=== PATIENT | female | born 1940 | race Caucasian/White ===

== ENCOUNTER 2017-03-31 12:08 | Observation (INO) | payer MEDICARE, BC ==
[~2017-03-31] VITALS: Ht 154.9 cm; Wt 40.1 kg
[2017-03-31 12:10] VITALS: BP 142/81
--- OUTSIDE RECORDS SUMMARY | 2017-03-31 12:36 | External Medical Summary Rpt ---
Author Author [employer] Organization [employer] Address Unknown Phone Unavailable Purpose Continuity of Care Document - through 2016
--- OUTSIDE RECORDS SUMMARY | 2017-03-31 12:36 | External Medical Summary Rpt ---
Author Author [facility] [place] Organization [facility] Address Unknown Phone Unavailable Care Team Providers Care [employer] Name Role Phone DR RAYMOND PCP [phone] Encounter [facility] [id number] Date(s): 08/10/16 - 08/10/16 [facility] [address] [place] [address]- Discharge Diagnosis: Nausea Discharge Diagnosis: Acute lower UTI Discharge Diagnosis: Acute hyponatremia Discharge Disposition: OP Self Care or Home Attending Physician: RADHA STYLES MD-EMR Admitting Physician: RADHA STYLES MD-EMR Referring Physician: RAYMOND, SELF REFERRED Reason for Visit DEHYDRATED, PATIENT IS ALCOHOLIC, MAY HAVE HAD SEIZURE Vital Signs Most recent 1 2 3 to oldest [Reference Range]: Temperature Oral (08/10/16 Tympanic Source 7:26 PM) (08/10/16 1:56 PM) Temperature Fahrenheit Fahrenheit Mode (08/10/16 7:26 (08/10/16 1:56 PM) PM) Temperature, 97.9 Deg F 97.6 Deg F Fahrenheit (08/10/16 7:26 (08/10/16 1:56 [96.8-99.7 PM) PM) Deg F] Clinical 36.6 Deg C 36.4 Deg C Temperature, (08/10/16 7:26 (08/10/16 1:56 C PM) PM) Peripheral 81 bpm (08/10/16 97 bpm (08/10/16 Pulse Rate 7:26 PM) 1:56 PM) [60-100 bpm] Heart Rate 83 bpm (08/10/16 89 bpm (08/10/16 88 bpm (08/10/16 Monitored 5:15 PM) 5:00 PM) 4:45 PM) [60-100 bpm] Respiratory 16 Breaths/Min 23 Breaths/Min 51 Breaths/Min Rate [14-20 (08/10/16 7:26 *HI*(08/10/16 *HI*(08/10/16 Breaths/Min] PM) 5:15 PM) 5:00 PM) Blood 189/83 mmHg 164/82 mmHg 164/82 mmHg Pressure *HI*(08/10/16 *HI*(08/10/16 *HI*(08/10/16 [90-140/60-9 7:26 PM) 4:45 PM) 4:30 PM) 0 mmHg] Mean 114 (08/10/16 114 (08/10/16 Arterial 4:45 PM) 4:30 PM) Pressure (MAP)-BMDI Oxygen 94 % (08/10/16 98 % (08/10/16 Saturation 7: PM) 1:56 PM) [94-100 %] Oxygen Room air Therapy Mode (08/10/16 7:26 PM) Problem List Condition Effective Status Health Informant Dates Status Chronic back Active patient pain(Confirm ed) Compression Active fracture(Con firmed) S/P Active kyphoplasty( Confirmed) History of Active patient COPD(Confirm ed) Hx of breast Active cancer(Confi rmed) Smoker(Confi Active patient rmed) Allergies, Adverse Reactions, Alerts Substance Reaction Severity Status tetanus toxoid Active Medications acetaminophen-HYDROcodone (Lortab 10/325 oral tablet) Oral, Every 6 Hours, Refills: 0 nitrofurantoin (Macrobid 100 mg oral capsule)1 Cap, Oral, Two Times A Day, 7 Day(s), Refills: 0Ordering provider: AMADA SOTO MD-EMR ondansetron (Zofran ODT 4 mg oral tablet, disintegrating)1 Tab, Oral, Three Times A Day, As Needed, Nausea/Vomiting, Refills: 0Ordering provider: AMADA SOTO MD-EMR Results GENERAL CHEMISTRY Most recent 1 to oldest [Reference Range]: Sodium Level 131 mmol/L [136-145 *LOW* mmol/L] (08/10/16 4:42 PM) Potassium 4.2 mmol/L Level (08/10/16 4:42 PM) [3.5-5.1 mmol/L] Chloride 92 mmol/L Level *LOW* [98-107 (08/10/16 4:42 PM) mmol/L] Carbon 26 mmol/L Dioxide (08/10/16 4:42 PM) Level [21-32 mmol/L] Anion Gap 17 [9-20] (08/10/16 4:42 PM) Glucose 122 mg/dL Level *HI* [74-106 (08/10/16 4:42 PM) mg/dL] Blood Urea 11 mg/dL Nitrogen (08/10/16 4:42 PM) [7-18 mg/dL] Creatinine 0.82 mg/dL Level (08/10/16 4:42 PM) [0.55-1.02 mg/dL] eGFR 82 mL/min/1.73m2 [>=60 (08/10/16 4:42 PM) mL/min/1.73m 2] eGFR 68 mL/min/1.73m2 NonAfrican (08/10/16 4:42 PM) [>=60 mL/min/1.73m 2] Bun/Creatini 13.4 ne (08/10/16 4:42 PM) [8.0-20.0] Calcium 9.8 mg/dL Level (08/10/16 4:42 PM) [8.5-10.1 mg/dL] Protein 7.9 Gram/dL Total (08/10/16 4:42 PM) [6.4-8.5 Gram/dL] Albumin 4.7 Gram/dL Level (08/10/16 4:42 PM) [3.4-5.0 Gram/dL] Globulin 3.2 Gram/dL [1.5-4.5 (08/10/16 4:42 PM) Gram/dL] A/G Ratio 1.5 [1.1-2.5] (08/10/16 4:42 PM) Bilirubin 0.5 mg/dL Total (08/10/16 4:42 PM) [0.2-1.0 mg/dL] Alk Phos 135 Units/Liter [46-116 *HI* Units/Liter] (08/10/16 4:42 PM) AST [15-37 22 Units/Liter Units/Liter] (08/10/16 4:42 PM) ALT [12-78 19 Units/Liter Units/Liter] (08/10/16 4:42 PM) CARDIAC SPECIFIC MARKERS Most recent 1 to oldest [Reference Range]: Troponin I <0.017 ng/mL Ultra (12/26/16 4:42 PM) [0.000-0.056 ng/mL] HEMATOLOGY Most recent 1 to oldest [Reference Range]: WBC [4.2-9.1 10.6 K/uL K/uL] *HI* (08/10/16 4:42 PM) RBC 4.39 Million/uL [3.93-5.22 (08/10/16 4:42 PM) Million/uL] Hgb 14.9 Gram/dL [11.2-15.7 (08/10/16 4:42 PM) Gram/dL] Hct 41.0 % [34.1-44.9 (08/10/16 4:42 PM) %] MCV 93.4 fL [79.0-94.8 (08/10/16 4:42 PM) fL] MCH 33.9 pg [25.6-32.2 *HI* pg] (08/10/16 4:42 PM) MCHC 36.3 Gram/dL [32.2-36.5 (08/10/16 4:42 PM) Gram/dL] Platelet 320 K/uL Count (08/10/16 4:42 PM) [163-369 K/uL] MPV 9.0 fL [9.4-12.4 *LOW* fL] (08/10/16 4:42 PM) RDW 13.4 % [11.6-14.4 (08/10/16 4:42 PM) %] Neut % 81.7 % [34.0-71.0 *HI* %] (08/10/16 4:42 PM) Neut # 8.66 K/uL [1.56-6.13 *HI* K/uL] (08/10/16 4:42 PM) Lymph % 13.7 % [19.0-53.0 *LOW* %] (08/10/16 4:42 PM) Lymph # 1.45 K/uL [1.18-3.74 (08/10/16 4:42 PM) K/uL] Mchenry % 4.3 % [4.7-12.5 %] *LOW* (08/10/16 4:42 PM) Mchenry # 0.46 K/uL [0.24-0.82 (08/10/16 4:42 PM) K/uL] Eos % 0.1 % [1.0-7.0 %] *LOW* (08/10/16 4:42 PM) Eos # 0.01 K/uL [0.04-0.54 *LOW* K/uL] (08/10/16 4:42 PM) Baso % 0.2 % [0.0-1.0 %] (08/10/16 4:42 PM) Baso # 0.02 K/uL [0.01-0.08 (08/10/16 4:42 PM) K/uL] Slide Review No (08/10/16 4:42 PM) URINALYSIS Most recent 1 to oldest [Reference Range]: Urine Type U CleanCatch (08/10/16 4:57 PM) Urine Color Yellow *NA* (08/10/16 4:57 PM) Urine Cloudy Appearance *ABN* (08/10/16 4:57 PM) Urine 1.005 Specific (08/10/16 4:57 PM) Premium [1.005-1.030 ] Urine pH 7.0 Dipstick (08/10/16 4:57 PM) [6.0-8.0] Urine Large Leukocyte *ABN* Esterase (08/10/16 4:57 PM) [Negative] Urine Negative Nitrite (08/10/16 4:57 PM) [Negative] Urine Negative Protein (08/10/16 4:57 PM) Dipstick [Negative] Urine Negative Glucose (08/10/16 4:57 PM) Dipstick [Negative] Urine Trace Ketones *ABN* Dipstick (08/10/16 4:57 PM) [Negative] Urine 0.2 EU/dL Urobilinogen (08/10/16 4:57 PM) Dipstick Urine Negative Bilirubin (08/10/16 4:57 PM) Dipstick [Negative] Urine Blood Trace Dipstick *ABN* [Negative] (08/10/16 4:57 PM) Ur RBC [None 5-10 /HPF Seen /HPF] *ABN* (08/10/16 4:57 PM) Ur WBC [None 20-50 /HPF Seen /HPF] *ABN* (08/10/16 4:57 PM) Ur Bacteria Trace [None Seen] *ABN* (08/10/16 4:57 PM) Ur Amorph Trace *ABN* (08/10/16 4:57 PM) Ur 2-5 /HPF Epithelial *ABN* Cells [None (08/10/16 4:57 PM) Seen /HPF] TOXICOLOGY Most recent 1 to oldest [Reference Range]: Alcohol <3 mg/dL *NA* (08/10/16 4:42 PM) Immunizations No data available for this section Procedures No data available for this section Social History Social History Response Type Smoking Status Current every day smoker; Packs/Tins Daily 3 Assessment and Plan No data available for this section Hospital Discharge Instructions Patient EducationNausea, Adult Urinary Tract Infection
--- OUTSIDE RECORDS SUMMARY | 2017-03-31 12:36 | External Medical Summary Rpt ---
Author Author DEAN Address Unknown Phone [email or web address] Purpose Continuity of Care Document - through 2016
--- OUTSIDE RECORDS SUMMARY | 2017-03-31 12:36 | External Medical Summary Rpt ---
Author Author [facility] Organization [facility] Address Unknown Phone Unavailable Care Team Providers Care Outside Salesperson Name Role Phone RAYMOND, SHERRI DAVID DR PCP Unavailable Encounter [facility] [id number] Date(s): 04/26/16 - 05/01/16 [facility] [address] [place] [address]- [phone] Discharge Diagnosis: Hyponatremia Discharge Diagnosis: Lumbar compression fracture Discharge Disposition: Inpatient Rehabilatation Facility Attending Physician: LISY ARREDONDO MD Admitting Physician: LISY ARREDONDO MD Referring Physician: SELF, REFERRED (REF) Reason for Visit COLLAPSED VERTEBRA, NEC, SITE UNSP, INIT Vital Signs Most recent 1 2 3 to oldest [Reference Range]: Temperature Oral Oral (04/30/16 Oral (04/30/16 Source (05/01/16 7:00 AM) 10:00 PM) 10:30 AM) Temperature Fahrenheit Fahrenheit Fahrenheit Mode (05/01/16 7:00 AM) (04/30/16 10:00 (04/30/16 10:30 PM) AM) Temperature, 98.6 Deg F 97.6 Deg F 98.3 Deg F Fahrenheit (05/01/16 7:00 AM) (04/30/16 10:00 (04/30/16 1:39 PM) [96.8-99.7 PM) Deg F] Clinical 37 Deg C 36.4 Deg C 36.8 Deg C Temperature, (05/01/16 7:00 AM) (04/30/16 10:00 (04/30/16 1:39 PM) C PM) Pulse Method Pulse Oximetry Pulse Oximetry (04/29/16 11:36 (04/26/16 6:24 PM) AM) Pulse Rhythm Regular (04/29/16 11:36 AM) Heart Rate, 88 bpm 69 bpm 83 bpm Apical (04/27/16 4:30 PM) (04/27/16 8:54 AM) (04/26/16 9:13 PM) [60-100 bpm] Peripheral 74 bpm (04/26/16 Pulse Rate 11:38 AM) [60-100 bpm] Heart Rate 58 bpm 62 bpm (04/30/16 56 bpm Monitored *LOW* 10:00 PM) *LOW* [60-100 bpm] (05/01/16 7:00 AM) (04/30/16 1:39 PM) Respiratory 16 Breaths/Min 16 Breaths/Min 15 Breaths/Min Rate [14-20 (04/30/16 1:39 PM) (04/30/16 5:00 AM) (04/29/16 9:00 PM) Breaths/Min] Blood Arm, right upper Arm, right upper Pressure (04/29/16 11:36 (04/26/16 11:38 Location AM) AM) Blood Non-Invasive BP Non-Invasive BP Pressure Device (04/29/16 Device (04/26/16 Source 11:36 AM) 11:38 AM) Blood Sitting (04/29/16 Pressure 11:36 AM) Position Blood 138/62 mmHg 149/78 mmHg 177/86 mmHg Pressure (05/01/16 7:00 AM) *HI*(04/30/16 *HI* [90-140/60-9 10:00 PM) (04/30/16 1:39 PM) 0 mmHg] Mean 80 92 (04/30/16 10:00 108 Arterial (05/01/16 7:00 AM) PM) (04/30/16 1:39 PM) Pressure (MAP)-BMDI Oxygen 95 % 99 % 100 % Saturation (05/01/16 8:00 AM) (04/30/16 8:00 AM) (04/30/16 5:00 AM) [94-100 %] Oxygen Room air Room air Simple mask Therapy Mode (05/01/16 8:00 AM) (04/30/16 8:00 AM) (04/29/16 2:19 PM) Oxygen Flow 6 Liter/Min Rate (04/29/16 2:19 PM) Problem List Condition Effective Status Health Informant Dates Status Chronic back Active patient pain(Confirm ed) Compression Active fracture(Con firmed) S/P Active kyphoplasty( Confirmed) History of Active patient COPD(Confirm ed) Hx of breast Active cancer(Confi rmed) Smoker(Confi Active patient rmed) Allergies, Adverse Reactions, Alerts Substance Reaction Severity Status tetanus toxoid Active Medications acetaminophen-HYDROcodone (Grovespring 5 mg-325 mg oral tablet)1 Tab, Oral, Every 6 Hours, 7 Day(s), As Needed, Breakthrough Pain, Refills: 0Ordering provider: ROCKY AYALA MD albuterol-ipratropium (DuoNeb 0.5 mg-2.5 mg/3 mL inhalation solution)3 mL, Nebulized Inhalation , Every 2 Hours, As Needed, Dyspnea, Refills: 0 carvedilol (Coreg 12.5 mg oral tablet) 1 Tab, Oral, Two Times A Day, Refills: 0 docusate (docusate sodium 100 mg oral capsule) 1 Cap, Oral, Every Day losartan (losartan 25 mg oral tablet) 1 Tab, Oral, Every Day Results GENERAL CHEMISTRY Most recent 1 2 3 to oldest [Reference Range]: Sodium Level 131 mmol/L 134 mmol/L 134 mmol/L [136-146 *LOW*(05/01/16 *LOW*(04/30/16 *LOW*(04/30/16 mmol/L] 2:29 AM) 2:41 AM) 2:41 AM) Potassium 3.9 mmol/L 4.3 mmol/L 4.3 mmol/L Level (05/01/16 2:29 AM) (04/30/16 2:41 AM) (04/30/16 2:41 AM) [3.5-5.1 mmol/L] Chloride 98 mmol/L 101 mmol/L 101 mmol/L Level *LOW*(05/01/16 *LOW*(04/30/16 *LOW*(04/30/16 [102-112 2:29 AM) 2:41 AM) 2:41 AM) mmol/L] Carbon 26 mmol/L 24 mmol/L 24 mmol/L Dioxide (05/01/16 2:29 AM) (04/30/16 2:41 AM) (04/30/16 2:41 AM) Level [21-32 mmol/L] Anion Gap 11 (05/01/16 2:29 13 (04/30/16 2:41 13 (04/30/16 2:41 [9-20] AM) AM) AM) Glucose 99 mg/dL (05/01/16 105 mg/dL 105 mg/dL Level 2:29 AM) (04/30/16 2:41 AM) (04/30/16 2:41 AM) [74-106 mg/dL] Blood Urea 7 mg/dL (05/01/16 13 mg/dL (04/30/16 13 mg/dL (04/30/16 Nitrogen 2:29 AM) 2:41 AM) 2:41 AM) [7-22 mg/dL] Creatinine 0.40 mg/dL 0.50 mg/dL 0.50 mg/dL Level *LOW*(05/01/16 *LOW*(04/30/16 *LOW*(04/30/16 [0.55-1.02 2:29 AM) 2:41 AM) 2:41 AM) mg/dL] eGFR 188 mL/min/1.73m2 145 mL/min/1.73m2 145 mL/min/1.73m2 [>=60 (05/01/16 2:29 (04/30/16 2:41 (04/30/16 2:41 mL/min/1.73m AM) AM) AM) 2] eGFR 155 mL/min/1.73m2 120 mL/min/1.73m2 120 mL/min/1.73m2 NonAfrican (05/01/16 2:29 (04/30/16 2:41 (04/30/16 2:41 [>=60 AM) AM) AM) mL/min/1.73m 2] Bun/Creatini 17.5 (05/01/16 26.0 *HI*(04/30/16 26.0 *HI*(04/30/16 ne 2:29 AM) 2:41 AM) 2:41 AM) [8.0-20.0] (04/30/16 2:41 AM) (04/30/16 2:41 AM) Calcium 8.1 mg/dL 8.2 mg/dL 8.2 mg/dL Level *LOW*(05/01/16 *LOW*(04/30/16 *LOW*(04/30/16 [8.5-10.1 2:29 AM) 2:41 AM) 2:41 AM) mg/dL] Protein 5.1 Gram/dL 5.1 Gram/dL 5.4 Gram/dL Total *LOW*(05/01/16 *LOW*(04/30/16 *LOW*(04/29/16 [6.4-8.2 2:29 AM) 2:41 AM) 2:36 AM) Gram/dL] Albumin 2.8 Gram/dL 2.7 Gram/dL 2.8 Gram/dL Level *LOW*(05/01/16 *LOW*(04/30/16 *LOW*(04/29/16 [3.4-5.0 2:29 AM) 2:41 AM) 2:36 AM) Gram/dL] Globulin 2.3 Gram/dL 2.4 Gram/dL 2.6 Gram/dL [1.5-4.5 (05/01/16 2:29 AM) (04/30/16 2:41 AM) (04/29/16 2:36 AM) Gram/dL] A/G Ratio 1.2 (05/01/16 2:29 1.1 (04/30/16 2:41 1.1 (04/29/16 2:36 [1.1-2.5] AM) AM) AM) Bilirubin 0.3 mg/dL 0.2 mg/dL 0.2 mg/dL Total (05/01/16 2:29 AM) (04/30/16 2:41 AM) 1(04/29/16 2:36 [0.2-1.0 AM) mg/dL] Alk Phos 107 Units/Liter 102 Units/Liter 96 Units/Liter [27-136 (05/01/16 2:29 AM) (04/30/16 2:41 AM) (04/29/16 2:36 AM) Units/Liter] AST [5-37 15 Units/Liter 16 Units/Liter 15 Units/Liter Units/Liter] (05/01/16 2:29 AM) (04/30/16 2:41 AM) (04/29/16 2:36 AM) ALT [12-78 14 Units/Liter 11 Units/Liter 15 Units/Liter Units/Liter] (05/01/16 2:29 AM) *LOW*(04/30/16 (04/29/16 2:36 AM) 2:41 AM) Magnesium 1.8 mg/dL 1.9 mg/dL Level (04/26/16 9:37 PM) (04/26/16 2:17 PM) [1.5-2.4 mg/dL] Phosphorus 3.0 mg/dL [2.3-4.9 (04/26/16 9:37 PM) mg/dL] 1Result Comment: Released without repeat.HEMATOLOGY Most recent 1 2 3 to oldest [Reference Range]: WBC 6.8 K/uL (05/01/16 8.7 K/uL (04/30/16 8.1 K/uL (04/29/16 [4.0-10.0 2:29 AM) 2:41 AM) 2:36 AM) K/uL] RBC 3.82 Million/uL 3.91 Million/uL 4.00 Million/uL [3.93-5.22 *LOW*(05/01/16 *LOW*(04/30/16 (04/29/16 2:36 AM) Million/uL] 2:29 AM) 2:41 AM) Hgb 12.8 g/dL 13.3 g/dL 13.3 g/dL [11.2-15.7 (05/01/16 2:29 AM) (04/30/16 2:41 AM) (04/29/16 2:36 AM) g/dL] Hct 36.4 % (05/01/16 38.9 % (04/30/16 38.6 % (04/29/16 [34.1-44.9 2:29 AM) 2:41 AM) 2:36 AM) %] MCV 95.3 fL 99.5 fL 96.5 fL [79.0-94.8 *HI*(05/01/16 2:29 *HI*(04/30/16 2:41 *HI*(04/29/16 2:36 fL] AM) AM) AM) MCH 33.5 pg 34.0 pg 33.3 pg [25.6-32.2 *HI*(05/01/16 2:29 *HI*(04/30/16 2:41 *HI*(04/29/16 2:36 pg] AM) AM) AM) MCHC 35.2 Gram/dL 34.2 Gram/dL 34.5 Gram/dL [32.2-36.5 (05/01/16 2:29 AM) (04/30/16 2:41 AM) (04/29/16 2:36 AM) Gram/dL] Platelet 245 K/uL (05/01/16 228 K/uL (04/30/16 248 K/uL (04/29/16 Count 2:29 AM) 2:41 AM) 2:36 AM) [163-369 K/uL] MPV 9.3 fL 9.0 fL 9.0 fL [9.4-12.4 *LOW*(05/01/16 *LOW*(04/30/16 *LOW*(04/29/16 fL] 2:29 AM) 2:41 AM) 2:36 AM) RDW 12.3 % (05/01/16 12.4 % (04/30/16 12.2 % (04/29/16 [11.6-14.4 2:29 AM) 2:41 AM) 2:36 AM) %] Neut % 66.7 % (05/01/16 79.6 % 71.2 % [34.0-71.0 2:29 AM) *HI*(04/30/16 2:41 *HI*(04/29/16 2:36 %] AM) AM) Neut # 4.54 K/uL 6.96 K/uL 5.77 K/uL [1.56-6.13 (05/01/16 2:29 AM) *HI*(04/30/16 2:41 (04/29/16 2:36 AM) K/uL] AM) Lymph % 20.2 % (05/01/16 11.6 % 17.9 % [19.3-53.1 2:29 AM) *LOW*(04/30/16 *LOW*(04/29/16 %] 2:41 AM) 2:36 AM) Lymph # 1.38 x10(3)/uL 1.01 x10(3)/uL 1.45 x10(3)/uL [1.00-3.90 (05/01/16 2:29 AM) (04/30/16 2:41 AM) (04/29/16 2:36 AM) x10(3)/uL] [place] % 8.2 % (05/01/16 6.1 % (04/30/16 7.7 % (04/29/16 [3.0-9.0 %] 2:29 AM) 2:41 AM) 2:36 AM) [place] # 0.56 K/uL 0.53 K/uL 0.62 K/uL [0.16-1.00 (05/01/16 2:29 AM) (04/30/16 2:41 AM) (04/29/16 2:36 AM) K/uL] Eos % 3.5 % (05/01/16 1.6 % (04/30/16 2.1 % (04/29/16 [0.0-7.0 %] 2:29 AM) 2:41 AM) 2:36 AM) Eos # 0.24 x10(3)/uL 0.14 x10(3)/uL 0.17 x10(3)/uL [0.00-0.80 (05/01/16 2:29 AM) (04/30/16 2:41 AM) (04/29/16 2:36 AM) x10(3)/uL] Baso % 0.7 % (05/01/16 0.6 % (04/30/16 0.6 % (04/29/16 [0.0-1.5 %] 2:29 AM) 2:41 AM) 2:36 AM) Baso # 0.05 x10(3)/uL 0.05 x10(3)/uL 0.05 x10(3)/uL [0.00-0.20 (05/01/16 2:29 AM) (04/30/16 2:41 AM) (04/29/16 2:36 AM) x10(3)/uL] Slide Review No (05/01/16 2:29 No (04/30/16 2:41 No (04/29/16 2:36 AM) AM) AM) IG# 0.05 x10(3)/uL 0.04 x10(3)/uL 0.04 x10(3)/uL [0.00-0.05 (05/01/16 2:29 AM) (04/30/16 2:41 AM) (04/29/16 2:36 AM) x10(3)/uL] IG% 0.70 % 0.50 % (04/30/16 0.50 % (04/29/16 [0.00-0.60 *HI*(05/01/16 2:29 2:41 AM) 2:36 AM) %] AM) COAGULATION Most recent 1 2 3 to oldest [Reference Range]: PT [9.2-11.0 9.7 Second(s) 9.4 Second(s) Second(s)] (04/26/16 9:37 PM) (04/26/16 2:17 PM) INR 0.9 (04/26/16 9:37 0.9 (04/26/16 2:17 [0.0-1.1] PM) PM) URINALYSIS Most recent 1 2 3 to oldest [Reference Range]: Urine Type U CleanCatch (04/26/16 2:17 PM) Urine Color Yellow *NA*(04/26/16 2:17 PM) Urine Clear (04/26/16 Appearance 2:17 PM) Urine 1.009 (04/26/16 Specific 2:17 PM) [place] [1.005-1.030 ] Urine pH 6.5 (04/26/16 2:17 Dipstick PM) [6.0-8.0] Urine Negative (04/26/16 Leukocyte 2:17 PM) Esterase [Negative] Urine Negative (04/26/16 Nitrite 2:17 PM) [Negative] Urine Negative (04/26/16 Protein 2:17 PM) Dipstick [Negative] Urine Negative (04/26/16 Glucose 2:17 PM) Dipstick [Negative] Urine Trace Ketones *ABN*(04/26/16 Dipstick 2:17 PM) [Negative] Urine 0.2 EU/dL Urobilinogen (04/26/16 2:17 PM) Dipstick Urine Negative (04/26/16 Bilirubin 2:17 PM) Dipstick [Negative] Urine Blood Negative (04/26/16 Dipstick 2:17 PM) [Negative] Ur WBC 0-2 /HPF (04/26/16 2:17 PM) Ur Squamous 0-2 /HPF (04/26/16 Epithelial 2:17 PM) Cells TOXICOLOGY Most recent 1 2 3 to oldest [Reference Range]: UDS pH 6.0 (04/26/16 2:17 PM) UDS Amp NEGATIVE (04/26/16 [NEGATIVE] 2:17 PM) UDS Lizzie NEGATIVE (04/26/16 [NEGATIVE] 2:17 PM) UDS Benzo NEGATIVE (04/26/16 [NEGATIVE] 2:17 PM) UDS Mima NEGATIVE (04/26/16 [NEGATIVE] 2:17 PM) UDS Opi NEGATIVE (04/26/16 [NEGATIVE] 2:17 PM) UDS PCP NEGATIVE (04/26/16 [NEGATIVE] 2:17 PM) UDS TCA Negative (04/26/16 2:17 PM) UDS THC NEGATIVE (04/26/16 [NEGATIVE] 2:17 PM) Alcohol <3 mg/dL *NA*(04/26/16 2:17 PM) Immunizations No data available for this section Procedures No data available for this section Social History Social History Response Type Smoking Status Current every day smoker; Smoking Frequency Within Last 30 Days Five or more cigarettes per day; Tobacco Use Within Last Twelve Months Cigarettes; Packs/Tins Daily 3; Used Tobacco, but Quit Yes; Second Hand Smoke Exposure Yes; Smokeless Tobacco Use History None1 1patient POA states she smokes about 3 packs of cigarettes per day Assessment and Plan Extracted from: Title: Discharge Author: ROCKY AYALA Date: 05/01/16 Summary * MD Rachael Discharge InformationAdmission Date: 04/26/2016Discharge Date: 05/01/2016[facility]. Compression fracture of L2, P8Gjfasm post kyphoplasty.2. Hyponatremia - Improved with IVF.3. Dehydration - resolved with IV fluids4. History of alcoholism - Pat[place] on alcohol withdrawal protocol. No signs of alcohol withdrawal5. Accelerated hypertension - Home medication losartan started. coreg 12.5 mg po bid added and continue with prn antihypertensives.6. History of supraventricular tachycardia. Monitor on telemetry.7. For history of chronic hypoxic respiratory failure, patient to get Status post kyphoplasty. 2. Hyponatremia - Improved with IVF. 3. Dehydration - resolved with IV fluids 4. History of alcoholism - Patinet on alcohol withdrawal protocol. No signs of alcohol withdrawal 5. Accelerated hypertension - Home medication losartan started. coreg 12.5 mg po bid added and continue with prn antihypertensives. 6. History of supraventricular tachycardia. Monitor on telemetry. 7. For history of chronic hypoxic respiratory failure, patient to get Physical Examination Eye: Pupils are equal, round and reactive to light. Respiratory: Lungs are clear to auscultation. Cardiovascular: Normal rate. Hospital CourseMrsJenna Dave is a 75-year-old female with a past medical history significant for previous kyphoplasty at T11 Who presented to the emergency department after a fall. She states she was wearing her slippers when she lost her balance and fell backwards. She denies any head injury. She has had significant back pain since the time of the fall. She denies any radicular pain to her bilateral lower extremities. She denies any numbness or tingling. She denies any saddle paresthesias or loss of bowel or bladder function. MRI lumbosacral spine performed with and did show compression fracture involving superior endplate of L2 and there is abnormal marrow in the sacrum.Patient admitted to the hospital. Neurosurgery consult was obtained Dr. Kartik Tang saw and evaluate the patient subsequently patient underwent kyphoplasty to L1 patient tolerated procedure very well. Physical therapy continued evaluating the patient during this hospitalization and today she ambulating 250 feet. Continue complaining of mild back pain. Her Trent catheter will be discontinued today.During this hospitalization patient was placed on GI and DVT prophylaxis. MAY 01 02:29 L 131 | L 98 | 7 / 99 3.9 | 26 | L 0.40 \\ MAY 01 02:29 \\ 12.8 / 6.8 245 / 36.4 \\MRI lumbosacral spine1. Compression fracture involving the superior endplate of L2 which isacute. Likely subacute compression deformities involving the inferiorendplate of L4 and the superior endplate of L5.2. Abnormal marrow in the sacrum. No fracture visualized. Other causefor abnormal marrow signal intensity such as neoplasm not entirelyexcluded. Please correlate with any history of neoplasm. This isincompletely imaged.3. Multilevel degenerative disc disease.Discharge Medications:Aspirin Enteric Coated 325 mg oral delayed release tablet 325 mg = 1 Tab, Oral, DailyCoreg 12.5 mg oral tablet 12.5 mg = 1 Tab, Oral, BIDdocusate sodium 100 mg oral capsule 100 mg = 1 Cap, Oral, DailyDuoNeb 0.5 mg-2.5 mg/3 mL inhalation solution 3 mL, PRN, Nebulized Inhalation, P9Owrtsekow 25 mg oral tablet 25 mg = 1 Tab, Oral, DailyNorco 5 mg-325 mg oral tablet 1 Tab, PRN, Oral, G1SDclwp 5 mg-325 mg oral tablet 2 Tab, PRN, Oral, D8FLjsjnccxy Instructions:1. Follow up with his primary care provider within one to two weeks.2. Follow up with Dr. Tang 2 weeks3. Diet: Cardiac diet.4. Activities: As tolerated5. Check patient may required home oxygen after dischargeTime spent 45 minutes Aspirin Enteric Coated 325 mg oral delayed release tablet 325 mg = 1 Tab, Oral, Daily Coreg 12.5 mg oral tablet 12.5 mg = 1 Tab, Oral, BID docusate sodium 100 mg oral capsule 100 mg = 1 Cap, Oral, Daily DuoNeb 0.5 mg-2.5 mg/3 mL inhalation solution 3 mL, PRN, Nebulized Inhalation, Q2H losartan 25 mg oral tablet 25 mg = 1 Tab, Oral, Daily Grovespring 5 mg-325 mg oral tablet 1 Tab, PRN, Oral, Q6H Grovespring 5 mg-325 mg oral tablet 2 Tab, PRN, Oral, Q4H Discharge Instructions: 1. Follow up with his primary care provider within one to two weeks. 2. Follow up with Dr. Tang 2 weeks 3. Diet: Cardiac diet. 4. Activities: As tolerated 5. Check patient may required home oxygen after discharge Time spent 45 minutes Discharge PlanDischarge Summary PlanDischarge Status: stable.Discharge instructions given: to patient.Discharge disposition: [facility]iary facility Inpatient rehabilitation facility. Discharge instructions given: to patient. Discharge disposition: discharge to penitentiary facility Inpatient rehabilitation facility. Extracted from: Title: Progress Note Author: ROCKY AYALA Date: 04/30/16 MD Rachael Basic Information Mild back pain. Mild dizziness and nausea when she sits No fever or chills. Awaiting for physical therapy to evaluate and ambulate Health StatusAllergies:Allergic Reactions (All)Severity Not DocumentedTetanus toxoid- No reactions were documented.,Allergies (1) ActiveReactiontetanus toxoidNone DocumentedCurrent medications: (Selected)Inpatient MedicationsOrderedAncef: 2 Gram, 50 mL, 100 mL/Hr, IV Piggyback, PREOPAtivan: 0.5 mg, IV Push, Q4H, PRN: AnxietyAtivan: 1 mg, IV Push, Q30Min, PRN: Other (See Comment)Ativan: 1 mg, Oral, Q30Min, PRN: Other (See Comment)Ativan: 2 mg, IV Push, Q30Min, PRN: Other (See Comment)Ativan: 2 mg, Oral, Q30Min, PRN: Other (See Comment)Ativan: 3 mg, IV Push, Q30Min, PRN: Other (See Comment)Ativan: 3 mg, Oral, Q30Min, PRN: Other (See Comment)Ativan: 4 mg, IV Push, Q30Min, PRN: Other (See Comment)Ativan: 4 mg, Oral, Q30Min, PRN: Other (See Comment)Catapres: 0.1 mg, Oral, Q6H, PRN: Other (See Comment)Core.5 mg, Oral, BIDDilaudid: 0.5 mg, IV Push, Q2H, PRN: Breakthrough PainDuoNeb 0.5 mg-2.5 mg/3 mL inhalation solution: 3 mL, Nebulized Inhalation, Q2H, PRN: DyspneaLactated Ringers Injection 1,000 mL: 20 mL/Hr, IntraVENousLidoderm 5% topical film: 1 Patch, Topical, DailyLopressor: 25 mg, Oral, Q6H, PRN: HypertensionNorco 5 mg-325 mg oral tablet: 1 Tab, Oral, Q4H, PRN: Breakthrough PainNorco 5 mg-325 mg oral tablet: 2 Tab, Oral, Q4H, PRN: Breakthrough PainNormal Saline Flush: 10 mL, IV Push, 1-TimeZofran: 4 mg, IV Push, Q4H, PRN: Nausea/VomitingZofran: 4 mg, Oral, Q4H, PRN: Nausea/Vomitingfolic acid: 2 mg, Oral, 1-Timehaloperidol: 2 mg, IntraMuscular, Q4H, PRN: AgitationhydrALAZINE: 20 mg, IV Push, Q4H, PRN: Hypertensionlosartan: 50 mg, Oral, Dailynicotine 21 mg/24 hr transdermal film, extended release: 1 Patch, TransDermal, Dailysodium chloride 0.9% injectable solution: 10 mL, IV Push, See Comment, PRN: Other (See Comment)thiamine: 200 mg, Oral, 1-TimeDocumented MedicationsDocumentedAspirin Enteric Coated 325 mg oral delayed release tablet: 1 Tab, Oral, Dailydocusate sodium 100 mg oral capsule: 1 Cap, Oral, Dailylosartan 25 mg oral tablet: 1 Tab, Oral, Daily,Medications (29) ActiveScheduled: (8)#NaCl 0.9% *FLUSH* inj 10 mL 10 mL, IV Push, 1-Timecarvedilol 12.5 mg tab 12.5 mg 1 Tab, Oral, BIDceFAZolin/D5w 2 Gram 50 mL, IV Piggyback, PREOPfolic acid 1 mg tab 2 mg 2 Tab, Oral, 1-Timelidocaine 5% patch 1 Patch, Topical, Dailylosartan 50 mg tab 50 mg 1 Tab, Oral, Dailynicotine 21 mg/24 hr patch 1 Patch, TransDermal, Dailythiamine 100 mg tab 200 mg 2 Tab, Oral, 1-TimeContinuous: (1)lactated ringers 1,000 mL 1,000 mL, IntraVENous, 20 mL/HrPRN: (20)#NaCl 0.9% *FLUSH* inj 10 mL 10 mL, IV Push, See Commentacetaminophen/HYDROcodone 325/5 mg tab 1 Tab, Oral, W2Xyrkqubalnkphh/HYDROcodone 325/5 mg tab 2 Tab, Oral, P5Ljbaxbrvcx-cmsgdrppeiv inh 3 mL 3 mL, Nebulized Inhalation, A3NcmiOEWuae 0.1 mg tab 0.1 mg 1 Tab, Oral, X1Wtwqnaxzzuxa 5 mg/1 mL inj 2 mg 0.4 mL, IntraMuscular, H7EynueSWFUFCL 20 mg/1 mL inj 20 mg 1 mL, IV Push, V3JAMWRJzmcnvjip 1 mg/1 mL inj 0.5 mg 0.5 mL, IV Push, X9DAACtiuorb 0.5 mg tab 1 mg 2 Tab, Oral, K65RdsYTGxikkor 0.5 mg tab 2 mg 4 Tab, Oral, R97DmtZQWavezgd 1 mg tab 3 mg 3 Tab, Oral, K26SlsQNRszakgz 1 mg tab 4 mg 4 Tab, Oral, Q24IckQDWqsnxkn 2 mg/mL inj 1 mg 0.5 mL, IV Push, Y87EvmCQXqyemvi 2 mg/mL inj 2 mg 1 mL, IV Push, W37LqiFXZnmocfa 2 mg/mL inj 3 mg 1.5 mL, IV Push, C33GbwZEHhsfgrs 2 mg/mL inj 4 mg 2 mL, IV Push, H30DttIWTlkkffj 2 mg/mL inj 0.5 mg 0.25 mL, IV Push, N6Ecoskimsmxh tartrate 25 mg tab 25 mg 1 Tab, Oral, V2Qrqkohdkytdu 4 mg tab 4 mg 1 Tab, Oral, J3Uyfujmzvnlhe 4 mg/2 mL inj 4 mg 2 mL, IV Push, O6KAzpxhjz list:MedicalCompression fracture / SNOMED CT 8329081830 / ConfirmedS/P kyphoplasty / SNOMED CT 854152957 / ConfirmedHx of breast cancer / SNOMED CT 4605177358 / Confirmed,Active Problems (6)Chronic back pain Compression fracture History of COPD Hx of breast cancer S/P kyphoplasty Smoker #NaCl 0.9% *FLUSH* inj 10 mL 10 mL, IV Push, See Comment acetaminophen/HYDROcodone 325/5 mg tab 1 Tab, Oral, Q4H acetaminophen/HYDROcodone 325/5 mg tab 2 Tab, Oral, Q4H albuterol-ipratropium inh 3 mL 3 mL, Nebulized Inhalation, Q2H cloNIDine 0.1 mg tab 0.1 mg 1 Tab, Oral, Q6H haloperidol 5 mg/1 mL inj 2 mg 0.4 mL, IntraMuscular, Q4H hydrALAZINE 20 mg/1 mL inj 20 mg 1 mL, IV Push, Q4H HYDROmorphone 1 mg/1 mL inj 0.5 mg 0.5 mL, IV Push, Q2H LORazepam 0.5 mg tab 1 mg 2 Tab, Oral, Q30Min LORazepam 0.5 mg tab 2 mg 4 Tab, Oral, Q30Min LORazepam 1 mg tab 3 mg 3 Tab, Oral, Q30Min LORazepam 1 mg tab 4 mg 4 Tab, Oral, Q30Min LORazepam 2 mg/mL inj 1 mg 0.5 mL, IV Push, Q30Min LORazepam 2 mg/mL inj 2 mg 1 mL, IV Push, Q30Min LORazepam 2 mg/mL inj 3 mg 1.5 mL, IV Push, Q30Min LORazepam 2 mg/mL inj 4 mg 2 mL, IV Push, Q30Min LORazepam 2 mg/mL inj 0.5 mg 0.25 mL, IV Push, Q4H metoprolol tartrate 25 mg tab 25 mg 1 Tab, Oral, Q6H ondansetron 4 mg tab 4 mg 1 Tab, Oral, Q4H ondansetron 4 mg/2 mL inj 4 mg 2 mL, IV Push, Q4H Problem list: Medical Compression fracture / SNOMED CT [id number] / Confirmed S/P kyphoplasty / SNOMED CT [id number] / Confirmed Hx of breast cancer / SNOMED CT [id number] / Confirmed, Active Problems (6) Chronic back pain Compression fracture History of COPD Hx of breast cancer S/P kyphoplasty Smoker Physical ExaminationVS/MeasurementsVitals Signs (last 24 hrs) Last Charted Minimum MaximumTemp 97.4 (APR 30 10:30)97.4 (APR 30 10:30)98.1 (APR 29 11:36)Mon HR 62 (APR 30 10:30)43 (APR 29 15:05)62 (APR 30 10:30)Resp Rate 16 (APR 30 05:00)L 13 (APR 29 15:05)H 37 (APR 29 14:55)SBP H 171 (APR 30 10:30)135 (APR 29 20:45)H 193 (APR 29 14:19)DBP 77 (APR 30 10:30)L 59 (APR 29 20:45)87 (APR 29 14:19)MAP 103 (APR 30 10:30)76 (APR 29 20:45)125 (APR 29 14:19)SpO2 99 (APR 30 08:00)94 (APR 29 20:45)100 (APR 29 14:19)General: Alert and oriented, Mild distress.Eye: Pupils are equal, round and reactive to light, Vision unchanged.HENT: Normocephalic, Normal hearing.Neck: No jugular venous distention, No thyromegaly.Respiratory: Lungs are clear to auscultation, Breath sounds are equal.Cardiovascular: Normal rate, Regular rhythm.Gastrointestinal: Soft, Non-tender, Non-distended.Genitourinary: trent catheter in place.Musculoskeletal: Normal range of motion, Normal strength.Integumentary: Warm, Dry, [place].Neurologic: Alert, Oriented, No focal deficits, Cranial Nerves II-XII are grossly intact.Psychiatric: Cooperative, Appropriate mood & affect. Integumentary: Warm, Dry, [place]. Neurologic: Alert, Oriented, No focal deficits, Cranial Nerves II-XII are grossly intact. Psychiatric: Cooperative, Appropriate mood & affect. Review / ManagementResults review:Labs (Last four charted values)WBC 8.7(SEP 15)8.1(SEP 14)9.5(SEP 13)7.0(SEP 12)HB 13.3(SEP 15)13.3(SEP 14)14.1(SEP 13)14.8(SEP 12)HCT 38.9(SEP 15)38.6(SEP 14)39.9(SEP 13)41.4(SEP 12)Plt 228(SEP 15)248(SEP 14)222(SEP 13)266(SEP 12)Na L 134(SEP 15)L 134(SEP 15)L 131(SEP 14)L 131(SEP 13)K 4.3(SEP 15)4.3(SEP 15)4.4(SEP 14)4.0(SEP 13)Cl L 101(SEP 15)L 101(SEP 15)L 100(SEP 14)L 99(SEP 13)CO2 24(SEP 15)24(SEP 15)24(SEP 14)25(SEP 13)BUN 13(SEP 15)13(SEP 15)14(SEP 14)12(SEP 13)Cr L 0.50(SEP 15)L 0.50(SEP 15)L 0.50(SEP 14)0.60(SEP 13)Glu R 105(SEP 15)105(SEP 15)H 107(SEP 14)83(SEP 13)Ca L 8.2(SEP 15)L 8.2(SEP 15)L 8.2(SEP 14)8.6(SEP 13)PT 9.7(SEP 11)9.4(SEP 11)INR 0.9(SEP 11)0.9(SEP 11)AST 16(SEP 15)15(SEP 14)16(SEP 13)22(SEP 12)ALT L 11(SEP 15)15(SEP 14)15(SEP 13)16(SEP 12)ALK P 102(SEP 15)96(SEP 14)87(SEP 13)104(SEP 12)T Bili 0.2(SEP 15)0.2(SEP 14)0.6(SEP 13)0.6(SEP 12)PTN L 5.1(SEP 15)L 5.4(SEP 14)L 5.5(SEP 13)L 5.8(SEP 12)ALB L 2.7(SEP 15)L 2.8(SEP 14)L 3.0(SEP 13)L 3.0(SEP 12). AST 16(SEP 15)15(SEP 14)16(SEP 13)22(SEP 12) ALT L 11(SEP 15)15(SEP 14)15(SEP 13)16(SEP 12) ALK P 102(SEP 15)96(SEP 14)87(SEP 13)104(SEP 12) T Bili 0.2(SEP 15)0.2(SEP 14)0.6(SEP 13)0.6(SEP 12) PTN L 5.1(SEP 15)L 5.4(SEP 14)L 5.5(SEP 13)L 5.8(SEP 12) ALB L 2.7(SEP 15)L 2.8(SEP 14)L 3.0(SEP 13)L 3.0(SEP 12) . Impression and Plan1. Compression fracture of L2, P1Rautqd post kyphoplasty.Continue pain management.Neurosurgery following.Physical therapy evalMay benefit from inpatient rehabilitation.Discussed with director of casework.2. Hyponatremia - Improved with IVF.3. Dehydration - resolved with IV fluids4. History of alcoholism - Patinet on alcohol withdrawal protocol. No signs of alcohol withdrawal5. Accelerated hypertension - Home medication losartan started. coreg 12.5 mg po bid added and continue with prn antihypertensives.6. History of supraventricular tachycardia. Monitor on telemetry.7. For history of chronic hypoxic respiratory failure, patient to getoxygen per nasal cannula as needed for oxygen saturation less than 92%.8. For deep venous thrombosis prophylaxis, patient to get Lovenox 40mg subcutaneously daily. Patient will have neurosurgical evaluation forpossible kyphoplasty procedure.The patient states she wishes to be a FULL CODE.Disposition may need inpatient rehabilitation.Physical therapy eval.Time spent 25 minutes oxygen per nasal cannula as needed for oxygen saturation less than 92%. 8. For deep venous thrombosis prophylaxis, patient to get Lovenox 40 mg subcutaneously daily. Patient will have neurosurgical evaluation for possible kyphoplasty procedure. The patient states she wishes to be a FULL CODE. Disposition may need inpatient rehabilitation. Physical therapy eval. Time spent 25 minutes Extracted from: Title: Neurosurgery Author: BEREKET BAUTISTA, Date: 04/30/16 Simple Note RUDI Ms. Roy is s/p L2 kyphoplasty procedure. POD #1.She is unsure if she has improvement in back pain. Has not been oob.No new complaints.Neuro exam stable.Vitals Signs (last 24 hrs) Last Charted Minimum MaximumTemp 98.5 (APR 30 05:00)97.6 (APR 29 14:19)98.1 (APR 29 11:36)Mon HR 61 (APR 30 05:00)43 (APR 29 15:05)61 (APR 30 05:00)Resp Rate 16 (APR 30 05:00)L 13 (APR 29 15:05)H 37 (APR 14 14:55)SBP H 148 (APR 30 05:00)135 (APR 29 20:45)H 193 (APR 29 14:19)DBP 69 (APR 30 05:00)L 59 (APR 29 20:45)87 (APR 29 14:19)MAP 88 (APR 30 05:00)76 (APR 14 20:45)125 (APR 29 14:19)SpO2 100 (APR 30 05:00)94 (APR 29 20:45)100 (APR 29 14:19)Electrolytes(BMP) Results (Current Encounter/Past 24 Hours)Sodium Level 134 mmol/L LOW 04/30/2016 03:52Potassium Level 4.3 mmol/L 04/30/2016 03:52Chloride Level 101 mmol/L LOW 04/30/2016 03:52Carbon Dioxide Level 24 mmol/L 04/30/2016 03:52Anion Gap 13 04/30/2016 03:52Blood Urea Nitrogen 13 mg/dL 04/30/2016 03:52Glucose Level 105 mg/dL 04/30/2016 03:52Calcium Level 8.2 mg/dL LOW 04/30/2016 03:52Creatinine Level 0.50 mg/dL LOW 04/30/2016 03:52CBC Results (Current Encounter/Past 24 Hours)WBC 8.7 K/uL 04/30/2016 03:28Hct 38.9 % 04/30/2016 03:28Hgb 13.3 g/dL 04/30/2016 03:28Platelet Count 228 K/uL 04/30/2016 03:28Overall doing well. Discussed mobilization. Will order PTWill need inpt rehab.Encouraged spirometer.Reviewed general post op care.Will plan on f/u in 4 wks in office. CBC Results (Current Encounter/Past 24 Hours) WBC 8.7 K/uL 04/30/2016 03:28 Hct 38.9 % 04/30/2016 03:28 Hgb 13.3 g/dL 04/30/2016 03:28 Platelet Count 228 K/uL 04/30/2016 03:28 Overall doing well. Discussed mobilization. Will order PT Will need inpt rehab. Encouraged spirometer. Reviewed general post op care. Will plan on f/u in 4 wks in office. Extracted from: Title: Progress Note Author: LUCY ROCKY Date: 04/29/16 MD Rachael Basic Information no back pain after surgery. Intensity 8/10. No fever or chills Health StatusAllergies:Allergic Reactions (All)Severity Not DocumentedTetanus toxoid- No reactions were documented.,Allergies (1) ActiveReactiontetanus toxoidNone DocumentedCurrent medications: (Selected)Inpatient MedicationsOrderedAncef: 2 Gram, 50 mL, 100 mL/Hr, IV Piggyback, PREOPAtivan: 0.5 mg, IV Push, Q4H, PRN: AnxietyAtivan: 1 mg, IV Push, Q30Min, PRN: Other (See Comment)Ativan: 1 mg, Oral, Q30Min, PRN: Other (See Comment)Ativan: 2 mg, IV Push, Q30Min, PRN: Other (See Comment)Ativan: 2 mg, Oral, Q30Min, PRN: Other (See Comment)Ativan: 3 mg, IV Push, Q30Min, PRN: Other (See Comment)Ativan: 3 mg, Oral, Q30Min, PRN: Other (See Comment)Ativan: 4 mg, IV Push, Q30Min, PRN: Other (See Comment)Ativan: 4 mg, Oral, Q30Min, PRN: Other (See Comment)Catapres: 0.1 mg, Oral, Q6H, PRN: Other (See Comment)Core.5 mg, Oral, BIDDilaudid: 0.5 mg, IV Push, Q2H, PRN: Breakthrough PainDuoNeb 0.5 mg-2.5 mg/3 mL inhalation solution: 3 mL, Nebulized Inhalation, Q2H, PRN: DyspneaLactated Ringers Injection 1,000 mL: 20 mL/Hr, IntraVENousLidoderm 5% topical film: 1 Patch, Topical, DailyLopressor: 25 mg, Oral, Q6H, PRN: HypertensionNorco 5 mg-325 mg oral tablet: 1 Tab, Oral, Q4H, PRN: Breakthrough PainNorco 5 mg-325 mg oral tablet: 2 Tab, Oral, Q4H, PRN: Breakthrough PainNormal Saline Flush: 10 mL, IV Push, 1-TimeZofran: 4 mg, IV Push, Q4H, PRN: Nausea/VomitingZofran: 4 mg, Oral, Q4H, PRN: Nausea/Vomitingfolic acid: 1 mg, Oral, Dailyfolic acid: 2 mg, Oral, 1-Timehaloperidol: 2 mg, IntraMuscular, Q4H, PRN: AgitationhydrALAZINE: 20 mg, IV Push, Q4H, PRN: Hypertensionlosartan: 50 mg, Oral, Dailynicotine 21 mg/24 hr transdermal film, extended release: 1 Patch, TransDermal, Dailysodium chloride 0.9% injectable solution: 10 mL, IV Push, See Comment, PRN: Other (See Comment)thiamine: 200 mg, Oral, 1-TimeDocumented MedicationsDocumentedAspirin Enteric Coated 325 mg oral delayed release tablet: 1 Tab, Oral, Dailydocusate sodium 100 mg oral capsule: 1 Cap, Oral, Dailylosartan 25 mg oral tablet: 1 Tab, Oral, Daily,Medications (30) ActiveScheduled: (9)#NaCl 0.9% *FLUSH* inj 10 mL 10 mL, IV Push, 1-Timecarvedilol 12.5 mg tab 12.5 mg 1 Tab, Oral, BIDceFAZolin/D5w 2 Gram 50 mL, IV Piggyback, PREOPfolic acid 1 mg tab 2 mg 2 Tab, Oral, 1-Timefolic acid 1 mg tab 1 mg 1 Tab, Oral, Dailylidocaine 5% patch 1 Patch, Topical, Dailylosartan 50 mg tab 50 mg 1 Tab, Oral, Dailynicotine 21 mg/24 hr patch 1 Patch, TransDermal, Dailythiamine 100 mg tab 200 mg 2 Tab, Oral, 1-TimeContinuous: (1)lactated ringers 1,000 mL 1,000 mL, IntraVENous, 20 mL/HrPRN: (20)#NaCl 0.9% *FLUSH* inj 10 mL 10 mL, IV Push, See Commentacetaminophen/HYDROcodone 325/5 mg tab 1 Tab, Oral, Y3Zluborposeakuh/HYDROcodone 325/5 mg tab 2 Tab, Oral, G3Qpoogpgecc-lygjafjtbfm inh 3 mL 3 mL, Nebulized Inhalation, B5IsqlNXMtbm 0.1 mg tab 0.1 mg 1 Tab, Oral, V7Pbrdqrnfhrrl 5 mg/1 mL inj 2 mg 0.4 mL, IntraMuscular, K7JxcnqRMDVEKL 20 mg/1 mL inj 20 mg 1 mL, IV Push, K5GZCEBLzgtspyxv 1 mg/1 mL inj 0.5 mg 0.5 mL, IV Push, H5TPXHlonkll 0.5 mg tab 1 mg 2 Tab, Oral, Q49GtrYDAukjscu 0.5 mg tab 2 mg 4 Tab, Oral, Z02TokGEMbxrdqc 1 mg tab 3 mg 3 Tab, Oral, D68ZmfUQCcjutmj 1 mg tab 4 mg 4 Tab, Oral, Y34CfjBVKqixvdd 2 mg/mL inj 1 mg 0.5 mL, IV Push, R64NcpMHPxkrjxf 2 mg/mL inj 2 mg 1 mL, IV Push, Y90RdwNSXafiwjt 2 mg/mL inj 3 mg 1.5 mL, IV Push, L40IddFMYqkfjla 2 mg/mL inj 4 mg 2 mL, IV Push, M01ErzFIRswassz 2 mg/mL inj 0.5 mg 0.25 mL, IV Push, U2Ejrpdnwmhkq tartrate 25 mg tab 25 mg 1 Tab, Oral, H9Bwirxzsfkaod 4 mg tab 4 mg 1 Tab, Oral, C8Cdlstjeokdci 4 mg/2 mL inj 4 mg 2 mL, IV Push, O5ZYkaqjjz list:MedicalCompression fracture / SNOMED CT 5526931097 / ConfirmedS/P kyphoplasty / SNOMED CT 501669852 / ConfirmedHx of breast cancer / SNOMED CT 5223410306 / Confirmed,Active Problems (6)Chronic back pain Compression fracture History of COPD Hx of breast cancer S/P kyphoplasty Smoker lactated ringers 1,000 mL 1,000 mL, IntraVENous, 20 mL/Hr PRN: (20) #NaCl 0.9% *FLUSH* inj 10 mL 10 mL, IV Push, See Comment acetaminophen/HYDROcodone 325/5 mg tab 1 Tab, Oral, Q4H acetaminophen/HYDROcodone 325/5 mg tab 2 Tab, Oral, Q4H albuterol-ipratropium inh 3 mL 3 mL, Nebulized Inhalation, Q2H cloNIDine 0.1 mg tab 0.1 mg 1 Tab, Oral, Q6H haloperidol 5 mg/1 mL inj 2 mg 0.4 mL, IntraMuscular, Q4H hydrALAZINE 20 mg/1 mL inj 20 mg 1 mL, IV Push, Q4H HYDROmorphone 1 mg/1 mL inj 0.5 mg 0.5 mL, IV Push, Q2H LORazepam 0.5 mg tab 1 mg 2 Tab, Oral, Q30Min LORazepam 0.5 mg tab 2 mg 4 Tab, Oral, Q30Min LORazepam 1 mg tab 3 mg 3 Tab, Oral, Q30Min LORazepam 1 mg tab 4 mg 4 Tab, Oral, Q30Min LORazepam 2 mg/mL inj 1 mg 0.5 mL, IV Push, Q30Min LORazepam 2 mg/mL inj 2 mg 1 mL, IV Push, Q30Min LORazepam 2 mg/mL inj 3 mg 1.5 mL, IV Push, Q30Min LORazepam 2 mg/mL inj 4 mg 2 mL, IV Push, Q30Min LORazepam 2 mg/mL inj 0.5 mg 0.25 mL, IV Push, Q4H metoprolol tartrate 25 mg tab 25 mg 1 Tab, Oral, Q6H ondansetron 4 mg tab 4 mg 1 Tab, Oral, Q4H ondansetron 4 mg/2 mL inj 4 mg 2 mL, IV Push, Q4H Problem list: Medical Compression fracture / SNOMED CT 7677002268 / Confirmed S/P kyphoplasty / SNOMED CT 864788554 / Confirmed Hx of breast cancer / SNOMED CT 6174876007 / Confirmed, Active Problems (6) Chronic back pain Compression fracture History of COPD Hx of breast cancer S/P kyphoplasty Smoker Physical ExaminationVS/MeasurementsVitals Signs (last 24 hrs) Last Charted Minimum MaximumTemp 97.6 (APR 29 14:19)97.6 (APR 29 14:19)98.5 (APR 28 17:33)Mon HR 48 (APR 29 15:20)43 (APR 29 15:05)70 (APR 28 21:00)Resp Rate L 13 (APR 29 15:20)L 13 (APR 29 15:05)H 37 (APR 14 14:55)SBP H 182 (APR 14 15:20)99 (APR 13 21:00)H 193 (APR 14 14:19)DBP 85 (APR 14 15:20)L 55 (APR 14 02:00)87 (APR 14 14:19)MAP 122 (APR 29 15:20)71 (APR 14 02:00)125 (APR 29 14:19)SpO2 100 (APR 29 15:)96 (APR 29 08:00)100 (APR 29 14:19)General: Alert and oriented, Mild distress.Eye: Pupils are equal, round and reactive to light, Vision unchanged.HENT: Normocephalic, Normal hearing.Neck: No jugular venous distention, No thyromegaly.Respiratory: Lungs are clear to auscultation, Breath sounds are equal.Cardiovascular: Normal rate, Regular rhythm.Gastrointestinal: Soft, Non-tender, Non-distended.Genitourinary: trent catheter in place.Musculoskeletal: Normal range of motion, Normal strength.Integumentary: Warm, Dry, [place].Neurologic: Alert, Oriented, No focal deficits, Cranial Nerves II-XII are grossly intact.Psychiatric: Cooperative, Appropriate mood & affect. Integumentary: Warm, Dry, Ali Chuk. Neurologic: Alert, Oriented, No focal deficits, Cranial Nerves II-XII are grossly intact. Psychiatric: Cooperative, Appropriate mood & affect. Review / ManagementResults review:Labs (Last four charted values)WBC 8.1(SEP 14)9.5(SEP 13)7.0(SEP 12)9.6(SEP 11)HB 13.3(SEP 14)14.1(SEP 13)14.8(SEP 12)H 17.1(SEP 11)HCT 38.6(SEP 14)39.9(SEP 13)41.4(SEP 12)H 47.8(SEP 11)Plt 248(SEP 14)222(SEP 13)266(SEP 12)308(SEP 11)Na L 131(SEP 14)L 131(SEP 13)L 132(SEP 12)L 127(SEP 11)K 4.4(SEP 14)4.0(SEP 13)3.7(SEP 12)4.8(SEP 11)Cl L 100(SEP 14)L 99(SEP 13)L 98(SEP 12)L 93(SEP 11)CO2 24(SEP 14)25(SEP 13)22(SEP 12)22(SEP 11)BUN 14(SEP 14)12(SEP 13)14(SEP 12)9(SEP 11)Cr L 0.50(SEP 14)0.60(SEP 13)0.70(SEP 12)0.60(SEP 11)Glu R H 107(SEP 14)83(SEP 13)H 119(SEP 12)97(SEP 11)Ca L 8.2(SEP 14)8.6(SEP 13)8.7(SEP 12)9.5(SEP 11)PT 9.7(SEP 11)9.4(SEP 11)INR 0.9(SEP 11)0.9(SEP 11)AST 15(SEP 14)16(SEP 13)22(SEP 12)H 44(SEP 11)ALT 15(SEP 14)15(SEP 13)16(SEP 12)22(SEP 11)ALK P 96(SEP 14)87(SEP 13)104(SEP 12)H 138(SEP 11)T Bili 0.2(SEP 14)0.6(SEP 13)0.6(SEP 12)0.8(SEP 11)PTN L 5.4(SEP 14)L 5.5(SEP 13)L 5.8(SEP 12)7.5(SEP 11)ALB L 2.8(SEP 14)L 3.0(SEP 13)L 3.0(SEP 12)4.0(SEP 11). AST 15(SEP 14)16(SEP 13)22(SEP 12)H 44(SEP 11) ALT 15(SEP 14)15(SEP 13)16(SEP 12)22(SEP 11) ALK P 96(SEP 14)87(SEP 13)104(SEP 12)H 138(SEP 11) T Bili 0.2(SEP 14)0.6(SEP 13)0.6(SEP 12)0.8(SEP 11) PTN L 5.4(SEP 14)L 5.5(SEP 13)L 5.8(SEP 12)7.5(SEP 11) ALB L 2.8(SEP 14)L 3.0(SEP 13)L 3.0(SEP 12)4.0(SEP 11) . Impression and Plan1. Compression fracture of L2, L5 -Status post kyphoplasty.Continue pain management.Neurosurgery following.2. Hyponatremia - Improved with IVF.3. Dehydration - resolved with IV fluids4. History of alcoholism - Patinet on alcohol withdrawal protocol. No signs of alcohol withdrawal5. Accelerated hypertension - Home medication losartan started. coreg 12.5 mg po bid added and continue with prn antihypertensives.6. History of supraventricular tachycardia. Monitor on telemetry.7. For history of chronic hypoxic respiratory failure, patient to getoxygen per nasal cannula as needed for oxygen saturation less than 92%.8. For deep venous thrombosis prophylaxis, patient to get Lovenox 40mg subcutaneously daily. Patient will have neurosurgical evaluation forpossible kyphoplasty procedure.The patient states she wishes to be a FULL CODE.Disposition may need inpatient rehabilitation.Physical therapy eval.Time spent 25 minutes possible kyphoplasty procedure. The patient states she wishes to be a FULL CODE. Disposition may need inpatient rehabilitation. Physical therapy eval. Time spent 25 minutes Extracted from: Title: Progress Note Author: ARNULFO, Date: 04/28/16 MD LISY Basic InformationPatient blood pressure improved with nursing reportedly holding blood pressure medication for low blood pressure. Patient states alot of pain with attempt at movement. Neurosurgery plans L2 kypholplasty tomorrow. Health StatusAllergies:Allergic Reactions (All)Severity Not DocumentedTetanus toxoid- No reactions were documented.,Allergies (1) ActiveReactiontetanus toxoidNone DocumentedCurrent medications: (Selected)Inpatient MedicationsOrderedAtivan: 0.5 mg, IV Push, Q4H, PRN: AnxietyAtivan: 1 mg, IV Push, Q30Min, PRN: Other (See Comment)Ativan: 1 mg, Oral, Q30Min, PRN: Other (See Comment)Ativan: 2 mg, IV Push, Q30Min, PRN: Other (See Comment)Ativan: 2 mg, Oral, Q30Min, PRN: Other (See Comment)Ativan: 3 mg, IV Push, Q30Min, PRN: Other (See Comment)Ativan: 3 mg, Oral, Q30Min, PRN: Other (See Comment)Ativan: 4 mg, IV Push, Q30Min, PRN: Other (See Comment)Ativan: 4 mg, Oral, Q30Min, PRN: Other (See Comment)Catapres: 0.1 mg, Oral, Q6H, PRN: Other (See Comment)Core.5 mg, Oral, BIDDuoNeb 0.5 mg-2.5 mg/3 mL inhalation solution: 3 mL, Nebulized Inhalation, Q2H, PRN: DyspneaLidoderm 5% topical film: 1 Patch, Topical, DailyLopressor: 25 mg, Oral, Q6H, PRN: HypertensionLovenox: 40 mg, SubCutaneous, Q26JKzoQcizmc Saline Flush: 10 mL, IV Push, 1-TimeZofran: 4 mg, IV Push, Q4H, PRN: Nausea/VomitingZofran: 4 mg, Oral, Q4H, PRN: Nausea/Vomitingfolic acid: 1 mg, Oral, Dailyfolic acid: 2 mg, Oral, 1-Timehaloperidol: 2 mg, IntraMuscular, Q4H, PRN: AgitationhydrALAZINE: 20 mg, IV Push, Q4H, PRN: Hypertensionlosartan: 50 mg, Oral, Dailymorphine: 4 mg, IV Push, Q4H, PRN: Pain (Severe 7-10)nicotine 21 mg/24 hr transdermal film, extended release: 1 Patch, TransDermal, Dailysodium chloride 0.9% injectable solution: 10 mL, IV Push, See Comment, PRN: Other (See Comment)thiamine: 100 mg, Oral, Dailythiamine: 200 mg, Oral, 1-TimeDocumented MedicationsDocumentedAspirin Enteric Coated 325 mg oral delayed release tablet: 1 Tab, Oral, Dailydocusate sodium 100 mg oral capsule: 1 Cap, Oral, Dailylosartan 25 mg oral tablet: 1 Tab, Oral, Daily,Medications (27) ActiveScheduled: (9)#NaCl 0.9% *FLUSH* inj 10 mL 10 mL, IV Push, 1-Timecarvedilol 12.5 mg tab 12.5 mg 1 Tab, Oral, BIDfolic acid 1 mg tab 2 mg 2 Tab, Oral, 1-Timefolic acid 1 mg tab 1 mg 1 Tab, Oral, Dailylidocaine 5% patch 1 Patch, Topical, Dailylosartan 50 mg tab 50 mg 1 Tab, Oral, Dailynicotine 21 mg/24 hr patch 1 Patch, TransDermal, Dailythiamine 100 mg tab 200 mg 2 Tab, Oral, 1-Timethiamine 100 mg tab 100 mg 1 Tab, Oral, DailyContinuous: (0)PRN: (18)#NaCl 0.9% *FLUSH* inj 10 mL 10 mL, IV Push, See Commentalbuterol-ipratropium inh 3 mL 3 mL, Nebulized Inhalation, D0JsyvWAWpua 0.1 mg tab 0.1 mg 1 Tab, Oral, C2Jnyeszgnkyrm 5 mg/1 mL inj 2 mg 0.4 mL, IntraMuscular, R6HohveUBQZDTB 20 mg/1 mL inj 20 mg 1 mL, IV Push, Y8UXJVcthvod 0.5 mg tab 1 mg 2 Tab, Oral, V38YgfZHGpsngvf 0.5 mg tab 2 mg 4 Tab, Oral, P15BrvQKDzxfwev 1 mg tab 3 mg 3 Tab, Oral, A21YduDJCoybfsn 1 mg tab 4 mg 4 Tab, Oral, Y70YtwYOUjuexiy 2 mg/mL inj 1 mg 0.5 mL, IV Push, R49BdsKLEoaixuw 2 mg/mL inj 2 mg 1 mL, IV Push, T47BjgQTKbnmbzv 2 mg/mL inj 3 mg 1.5 mL, IV Push, T58FqjCZYwquyxk 2 mg/mL inj 4 mg 2 mL, IV Push, V88ZdxDOOyoogma 2 mg/mL inj 0.5 mg 0.25 mL, IV Push, T5Wmlldxbzpyp tartrate 25 mg tab 25 mg 1 Tab, Oral, E0Mrrqvkrdc 4 mg/1 mL cpjt inj 4 mg 1 mL, IV Push, I5Ufvpjfqvmnxk 4 mg tab 4 mg 1 Tab, Oral, B2Avrwvkdgrtdt 4 mg/2 mL inj 4 mg 2 mL, IV Push, B2KYjkzfvg list:MedicalCompression fracture / SNOMED CT [id number] / ConfirmedS/P kyphoplasty / SNOMED CT 555058903 / ConfirmedHx of breast cancer / SNOMED CT 8129417869 / Confirmed,Active Problems (6)Chronic back pain Compression fracture History of COPD Hx of breast cancer S/P kyphoplasty Smoker thiamine 100 mg tab 200 mg 2 Tab, Oral, 1-Time thiamine 100 mg tab 100 mg 1 Tab, Oral, Daily Continuous: (0) PRN: (18) #NaCl 0.9% *FLUSH* inj 10 mL 10 mL, IV Push, See Comment albuterol-ipratropium inh 3 mL 3 mL, Nebulized Inhalation, Q2H cloNIDine 0.1 mg tab 0.1 mg 1 Tab, Oral, Q6H haloperidol 5 mg/1 mL inj 2 mg 0.4 mL, IntraMuscular, Q4H hydrALAZINE 20 mg/1 mL inj 20 mg 1 mL, IV Push, Q4H LORazepam 0.5 mg tab 1 mg 2 Tab, Oral, Q30Min LORazepam 0.5 mg tab 2 mg 4 Tab, Oral, Q30Min LORazepam 1 mg tab 3 mg 3 Tab, Oral, Q30Min LORazepam 1 mg tab 4 mg 4 Tab, Oral, Q30Min LORazepam 2 mg/mL inj 1 mg 0.5 mL, IV Push, Q30Min LORazepam 2 mg/mL inj 2 mg 1 mL, IV Push, Q30Min LORazepam 2 mg/mL inj 3 mg 1.5 mL, IV Push, Q30Min LORazepam 2 mg/mL inj 4 mg 2 mL, IV Push, Q30Min LORazepam 2 mg/mL inj 0.5 mg 0.25 mL, IV Push, Q4H metoprolol tartrate 25 mg tab 25 mg 1 Tab, Oral, Q6H morphine 4 mg/1 mL cpjt inj 4 mg 1 mL, IV Push, Q4H ondansetron 4 mg tab 4 mg 1 Tab, Oral, Q4H ondansetron 4 mg/2 mL inj 4 mg 2 mL, IV Push, Q4H Problem list: Medical Compression fracture / SNOMED CT 4500016370 / Confirmed S/P kyphoplasty / SNOMED CT 486495084 / Confirmed Hx of breast cancer / SNOMED CT 3586301094 / Confirmed, Active Problems (6) Chronic back pain Compression fracture History of COPD Hx of breast cancer S/P kyphoplasty Smoker Physical ExaminationVS/MeasurementsVitals Signs (last 24 hrs) Last Charted Minimum MaximumTemp 98.5 ([facility] :)97.2 (APR 28 05:45)98.3 (APR 28 02:30)Mon HR 69 (APR 28:)61 (APR 28 05:30)69 (APR 28 09:30)Resp Rate 16 (APR 28:)14 (APR 28 02:30)16 (APR 28 09:30)SBP 130 (APR 28:33)120 (APR 28 09:30)H 150 (APR 28 05:30)DBP 64 (APR 28:33)L 43 (APR 28 09:30)H 93 (APR 28 02:30)MAP 75 ([facility] :)60 (APR 28 09:30)100 (APR 28 02:30)SpO2 96 (APR 28 09:00)96 (APR 28 09:00)96 (APR 28 09:00)General: Alert and oriented, Mild distress.Eye: Pupils are equal, round and reactive to light, Vision unchanged.HENT: Normocephalic, Normal hearing.Neck: No jugular venous distention, No thyromegaly.Respiratory: Lungs are clear to auscultation, Breath sounds are equal.Cardiovascular: Normal rate, Regular rhythm.Gastrointestinal: Soft, Non-tender, Non-distended.Musculoskeletal: Normal range of motion, Normal strength.Integumentary: Warm, Dry, Ali Chuk.Neurologic: Alert, Oriented, No focal deficits, Cranial Nerves II-XII are grossly intact.Psychiatric: Cooperative, Appropriate mood & affect. Integumentary: Warm, Dry, Ali Chuk. Neurologic: Alert, Oriented, No focal deficits, Cranial Nerves II-XII are grossly intact. Psychiatric: Cooperative, Appropriate mood & affect. Review / Management Results review: Labs (Last four charted values) WBC 9.5(SEP 13)7.0(SEP 12)9.6(SEP 11) HB 14.1(SEP 13)14.8(SEP 12)H 17.1(SEP 11) HCT 39.9(SEP 13)41.4(SEP 12)H 47.8(SEP 11) Plt 222(SEP 13)266(SEP 12)308(SEP 11) Na L 131(SEP 13)L 132(SEP 12)L 127(SEP 11) K 4.0(SEP 13)3.7(SEP 12)4.8(SEP 11) Cl L 99(SEP 13)L 98(SEP 12)L 93(SEP 11) CO2 25(SEP 13)22(SEP 12)22(SEP 11) BUN 12(SEP 13)14(SEP 12)9(SEP 11) Cr 0.60(SEP 13)0.70(SEP 12)0.60(SEP 11) Glu R 83(SEP 13)H 119(SEP 12)97(SEP 11) Ca 8.6(SEP 13)8.7(SEP 12)9.5(SEP 11) PT 9.7(SEP 11)9.4(SEP 11) INR 0.9(SEP 11)0.9(SEP 11) AST 16(SEP 13)22(SEP 12)H 44(SEP 11) ALT 15(SEP 13)16(SEP 12)22(SEP 11) ALK P 87(SEP 13)104(SEP 12)H 138(SEP 11) T Bili 0.6(SEP 13)0.6(SEP 12)0.8(SEP 11) PTN L 5.5(SEP 13)L 5.8(SEP 12)7.5(SEP 11) ALB L 3.0(SEP 13)L 3.0(SEP 12)4.0(SEP 11) . Impression and Plan1. Compression fracture of L2, L5 - Neurosurgery plans kyphoplasty. Patient to be on bed rest with [place] 7.5 q.4 h.p.r.n. with morphine 4 mg intravenously q.4 h. for breakthrough pain.2. Hyponatremia - Improved with IVF. Suspect multifactorial with [place] from drinking large amount of beer and hypovolemic hyponatremia.3. Dehydration - Has been on normal saline 75 mL per hour. Will discontinue as has good po fluid intake.4. History of alcoholism - Patinet on alcohol withdrawal protocol. No signs of alcohol withdrawal5. Accelerated hypertension - Home medication losartan started. Will add coreg 12.5 mg po bid and continue with prn antihypertensives.6. History of supraventricular tachycardia. Monitor on telemetry.7. For history of chronic hypoxic respiratory failure, patient to getoxygen per nasal cannula as needed for oxygen saturation less than 92%.8. For deep venous thrombosis prophylaxis, patient to get Lovenox 40mg subcutaneously daily. Patient will have neurosurgical evaluation forpossible kyphoplasty procedure.The patient states she wishes to be a FULL CODE. Extracted from: Title: SOAP Note: Author: ANOOP, Date: 04/28/16 Simple * RUDI RICHEY Subjective Continues to have pain with movement. ObjectiveVS/MeasurementsVitals Signs (last 24 hrs) Last Charted Minimum MaximumTemp 97.2 (APR 28 05:45)97.2 (APR 28 05:45)98.4 (APR 27 09:48)Apical HR 88 (APR 27 16:30)88 (APR 27 16:30)88 (APR 27 16:30)Mon HR 61 (APR 28 05:45)60 (APR 12 20:27)76 (APR 27 16:30)Resp Rate 15 (APR 28 05:45)14 (APR 13 02:30)16 (APR 27 09:48)SBP H 150 (APR 28 05:45)129 (APR 27 21:06)H 190 (APR 12 16:30)DBP 61 (APR 13 05:45)L 54 (APR 27 21:06)H 93 (APR 27 18:45)MAP 78 (APR 28 05:45)72 (APR 12 21:06)116 (APR 12 16:30)SpO2 L 92 (APR 12 13:29)L 92 (APR 12 13:29)97 (APR 12 10:50)Lying in bed in NAD. Pain with movement in bed. Moving lower extremitites well. Lying in bed in NAD. Pain with movement in bed. Moving lower extremitites well. Impression and Plan75 year old female with history of osteoporosis and acute L2 compression fractures. Dr. Tang has reviewed her MRIs. He does not appreciate acute fracture at L4 or L5. Would offer L2 kyphoplasty. Discussed with Ms. Roy and her nephew Jim by phone. She would like to proceed after she has talked about it more with her nephew. Will plan on L2 kyphoplasty tomorrow. Extracted from: Title: Progress Note Author: ALEXIKEITHFERNANDO, Date: 04/27/16 MD LISY Basic InformationPatient blood pressure very high. Blood pressure has been labile. Complains of nasuea and feeling hot. . Health StatusAllergies:Allergic Reactions (All)Severity Not DocumentedTetanus toxoid- No reactions were documented.,Allergies (1) ActiveReactiontetanus toxoidNone DocumentedCurrent medications: (Selected)Inpatient MedicationsOrderedAtivan: 1 mg, IV Push, Q30Min, PRN: Other (See Comment)Ativan: 1 mg, Oral, Q30Min, PRN: Other (See Comment)Ativan: 2 mg, IV Push, Q30Min, PRN: Other (See Comment)Ativan: 2 mg, Oral, Q30Min, PRN: Other (See Comment)Ativan: 3 mg, IV Push, Q30Min, PRN: Other (See Comment)Ativan: 3 mg, Oral, Q30Min, PRN: Other (See Comment)Ativan: 4 mg, IV Push, Q30Min, PRN: Other (See Comment)Ativan: 4 mg, Oral, Q30Min, PRN: Other (See Comment)Catapres: 0.1 mg, Oral, Q6H, PRN: Other (See Comment)DuoNeb 0.5 mg-2.5 mg/3 mL inhalation solution: 3 mL, Nebulized Inhalation, Q2H, PRN: DyspneaLidoderm 5% topical film: 1 Patch, Topical, DailyLopressor: 25 mg, Oral, Q6H, PRN: HypertensionLovenox: 40 mg, SubCutaneous, [id number] Saline 1,000 mL: 75 mL/Hr, IntraVENousNormal Saline Flush: 10 mL, IV Push, 1-TimeZofran: 4 mg, IV Push, Q4H, PRN: Pain (Moderate 4-6)Zofran: 4 mg, Oral, Q4H, PRN: Nausea/Vomitingaspirin: 325 mg, Oral, Dailyfolic acid: 1 mg, Oral, Dailyfolic acid: 2 mg, Oral, 1-Timehaloperidol: 2 mg, IntraMuscular, Q4H, PRN: Agitationlabetalol: 20 mg, IV Push, Q1H, PRN: Hypertensionlosartan: 50 mg, Oral, Dailymorphine: 4 mg, IV Push, Q4H, PRN: Painnicotine 21 mg/24 hr transdermal film, extended release: 1 Patch, TransDermal, Dailythiamine: 100 mg, Oral, Dailythiamine: 200 mg, Oral, 1-TimeDocumented MedicationsDocumentedAspirin Enteric Coated 325 mg oral delayed release tablet: 1 Tab, Oral, Dailydocusate sodium 100 mg oral capsule: 1 Cap, Oral, Dailylosartan 25 mg oral tablet: 1 Tab, Oral, Daily,Medications (27) ActiveScheduled: (10)#NaCl 0.9% *FLUSH* inj 10 mL 10 mL, IV Push, 1-Timeaspirin EC 325 mg tab 325 mg 1 Tab, Oral, Dailyenoxaparin 40 mg/0.4 mL inj 40 mg 0.4 mL, SubCutaneous, U13OAivrliku acid 1 mg tab 2 mg 2 Tab, Oral, 1-Timefolic acid 1 mg tab 1 mg 1 Tab, Oral, Dailylidocaine 5% patch 1 Patch, Topical, Dailylosartan 50 mg tab 50 mg 1 Tab, Oral, Dailynicotine 21 mg/24 hr patch 1 Patch, TransDermal, Dailythiamine 100 mg tab 200 mg 2 Tab, Oral, 1-Timethiamine 100 mg tab 100 mg 1 Tab, Oral, DailyContinuous: (1)NaCl 0.9% 1,000 mL 1,000 mL, IntraVENous, 75 mL/HrPRN: (16)albuterol-ipratropium inh 3 mL 3 mL, Nebulized Inhalation, O2LsizHCSfbl 0.1 mg tab 0.1 mg 1 Tab, Oral, C6Wuathmqvgcid 5 mg/1 mL inj 2 mg 0.4 mL, IntraMuscular, I9Xtrdmwhrvq 100 mg/20 mL inj 20 mg 4 mL, IV Push, F1KPFQogadaa 0.5 mg tab 1 mg 2 Tab, Oral, G25SjgQIMulnrrk 0.5 mg tab 2 mg 4 Tab, Oral, G94WndXIChmrrcy 1 mg tab 3 mg 3 Tab, Oral, A29QhuLCJvsivrs 1 mg tab 4 mg 4 Tab, Oral, J92HamIZFpcajhv 2 mg/mL inj 1 mg 0.5 mL, IV Push, R28HqrHZEbmtkwk 2 mg/mL inj 2 mg 1 mL, IV Push, E76FlfIWQzgwvdq 2 mg/mL inj 3 mg 1.5 mL, IV Push, D23UptQPYwbzfsp 2 mg/mL inj 4 mg 2 mL, IV Push, X56Ezthlyuwrohnv tartrate 25 mg tab 25 mg 1 Tab, Oral, L1Cvfcawtnh 4 mg/1 mL cpjt inj 4 mg 1 mL, IV Push, V5Ivbqfpcrlbot 4 mg tab 4 mg 1 Tab, Oral, G6Rcoiwjqtxlgk 4 mg/2 mL inj 4 mg 2 mL, IV Push, A0RZdzmoci list:MedicalCompression fracture / SNOMED CT 2984177937 / ConfirmedS/P kyphoplasty / SNOMED CT 465654575 / ConfirmedHx of breast cancer / SNOMED CT 5150923096 / Confirmed,Active Problems (6)Chronic back pain Compression fracture History of COPD Hx of breast cancer S/P kyphoplasty Smoker nicotine 21 mg/24 hr patch 1 Patch, TransDermal, Daily thiamine 100 mg tab 200 mg 2 Tab, Oral, 1-Time thiamine 100 mg tab 100 mg 1 Tab, Oral, Daily Continuous: (1) NaCl 0.9% 1,000 mL 1,000 mL, IntraVENous, 75 mL/Hr PRN: (16) albuterol-ipratropium inh 3 mL 3 mL, Nebulized Inhalation, Q2H cloNIDine 0.1 mg tab 0.1 mg 1 Tab, Oral, Q6H haloperidol 5 mg/1 mL inj 2 mg 0.4 mL, IntraMuscular, Q4H labetalol 100 mg/20 mL inj 20 mg 4 mL, IV Push, Q1H LORazepam 0.5 mg tab 1 mg 2 Tab, Oral, Q30Min LORazepam 0.5 mg tab 2 mg 4 Tab, Oral, Q30Min LORazepam 1 mg tab 3 mg 3 Tab, Oral, Q30Min LORazepam 1 mg tab 4 mg 4 Tab, Oral, Q30Min LORazepam 2 mg/mL inj 1 mg 0.5 mL, IV Push, Q30Min LORazepam 2 mg/mL inj 2 mg 1 mL, IV Push, Q30Min LORazepam 2 mg/mL inj 3 mg 1.5 mL, IV Push, Q30Min LORazepam 2 mg/mL inj 4 mg 2 mL, IV Push, Q30Min metoprolol tartrate 25 mg tab 25 mg 1 Tab, Oral, Q6H morphine 4 mg/1 mL cpjt inj 4 mg 1 mL, IV Push, Q4H ondansetron 4 mg tab 4 mg 1 Tab, Oral, Q4H ondansetron 4 mg/2 mL inj 4 mg 2 mL, IV Push, Q4H Problem list: Medical Compression fracture / SNOMED CT 9432691777 / Confirmed S/P kyphoplasty / SNOMED CT 696660171 / Confirmed Hx of breast cancer / SNOMED CT 2547226539 / Confirmed, Active Problems (6) Chronic back pain Compression fracture History of COPD Hx of breast cancer S/P kyphoplasty Smoker Physical ExaminationVS/MeasurementsVitals Signs (last 24 hrs) Last Charted Minimum MaximumTemp 97.4 (APR 27 13:)97.4 (APR 27:)98 (APR 26 20:47)Apical HR 69 (APR 27 08:54)69 (APR 27 08:54)83 (APR 26 21:13)Mon HR 70 (APR 27 13:29)67 (APR 27 09:48)88 (APR 26 20:47)Resp Rate 16 (APR 27 13:)16 (APR 27 09:00)H 25 (APR 26 18:24)SBP H 158 (APR 27 13:)116 (APR 12 02:45)H 198 (APR 26 17:01)DBP 62 (APR 27 13:)60 (APR 27 05:09)H 100 (APR 26 17:01)MAP 84 (SEP 12 13:29)71 (APR 12 05:09)131 (APR 11 17:01)SpO2 L 92 (APR 27 13:29)L 92 (APR 27 13:29)98 (APR 11 22:09)General: Alert and oriented, Mild distress.Eye: Pupils are equal, round and reactive to light, Vision unchanged.HENT: Normocephalic, Normal hearing.Neck: No jugular venous distention, No thyromegaly.Respiratory: Lungs are clear to auscultation, Breath sounds are equal.Cardiovascular: Normal rate, Regular rhythm.Gastrointestinal: Soft, Non-tender, Non-distended.Musculoskeletal: Normal range of motion, Normal strength.Integumentary: Warm, Dry, [place].Neurologic: Alert, Oriented, No focal deficits, Cranial Nerves II-XII are grossly intact.Psychiatric: Cooperative, Appropriate mood & affect. Integumentary: Warm, Dry, [place]. Neurologic: Alert, Oriented, No focal deficits, Cranial Nerves II-XII are grossly intact. Psychiatric: Cooperative, Appropriate mood & affect. Review / Management Results review: Labs (Last four charted values) WBC 7.0(SEP 12)9.6(SEP 11) HB 14.8(SEP 12)H 17.1(SEP 11) HCT 41.4(SEP 12)H 47.8(SEP 11) Plt 266(SEP 12)308(SEP 11) Na L 132(SEP 12)L 127(SEP 11) K 3.7(SEP 12)4.8(SEP 11) Cl L 98(SEP 12)L 93(SEP 11) CO2 22(SEP 12)22(SEP 11) BUN 14(SEP 12)9(SEP 11) Cr 0.70(SEP 12)0.60(SEP 11) Glu R H 119(SEP 12)97(SEP 11) Ca 8.7(SEP 12)9.5(SEP 11) PT 9.7(SEP 11)9.4(SEP 11) INR 0.9(SEP 11)0.9(SEP 11) AST 22(SEP 12)H 44(SEP 11) ALT 16(SEP 12)22(SEP 11) ALK P 104(SEP 12)H 138(SEP 11) T Bili 0.6(SEP 12)0.8(SEP 11) PTN L 5.8(SEP 12)7.5(SEP 11) ALB L 3.0(SEP 12)4.0(SEP 11) . Impression and Plan1. Compression fracture of L2, L5 - Neurosurgery consulted for possible kyphoplasty. Patient to be on bed rest with [place] 7.5 q.4 h.p.r.n. with morphine 4 mg intravenously q.4 h. for breakthrough pain.2. Hyponatremia - Improved with IVF. Suspect multifactorial with [place] from drinking large amount of beer and hypovolemic hyponatremia.3. Dehydration - Has been on normal saline 75 mL per hour. Will discontinue as has good po fluid intake.4. History of alcoholism - [place] on alcohol withdrawal protocol.5. Accelerated hypertension - Home medication losartan started. Will add coreg 12.5 mg po bid and continue with prn antihypertensives.6. History of supraventricular tachycardia. Monitor on telemetry.7. For history of chronic hypoxic respiratory failure, patient to getoxygen per nasal cannula as needed for oxygen saturation less than 92%.8. For deep venous thrombosis prophylaxis, patient to get Lovenox 40mg subcutaneously daily. Patient will have neurosurgical evaluation forpossible kyphoplasty procedure.The patient states she wishes to be a FULL CODE. Hospital Discharge Instructions Patient EducationBalloon Kyphoplasty Fall Prevention and Home Safety, Wtlv-ua-Jsrs Incision Care, Ifmh-el-Txux Wound Infection, Ubjb-fq-Cnoh"
--- OUTSIDE RECORDS SUMMARY | 2017-03-31 12:36 | External Medical Summary Rpt ---
Author Author DEAN Address Unknown Phone [email or web address] Purpose Continuity of Care Document - through 2016
--- OUTSIDE RECORDS SUMMARY | 2017-03-31 12:36 | External Medical Summary Rpt ---
Demographics Preferred Language Sami Marital Status Unknown Hinduism Affiliation Unknown Race Unknown Ethnic Group Unknown Author Author DEAN Address Unknown Phone Immunization No patient found.
--- OUTSIDE RECORDS SUMMARY | 2017-03-31 12:36 | External Medical Summary Rpt ---
Demographics Preferred Language Sami Marital Status Unknown Anabaptist Affiliation Unknown Race Unknown Ethnic Group Unknown Author Author DEAN Address Unknown Phone Immunization No patient found.
--- OUTSIDE RECORDS SUMMARY | 2017-03-31 12:36 | External Medical Summary Rpt ---
Author Author [facility] Organization [facility] Address Unknown Phone Unavailable Care Team Providers Care Access Manager Name Role Phone RAYMOND, SHERRI DAVID DR PCP Unavailable Encounter [facility] [id number] Date(s): 04/26/16 - 05/01/16 [facility] [address] [place] [address]- Discharge Diagnosis: Hyponatremia Discharge Diagnosis: Lumbar compression [...] Severity Status tetanus toxoid Active Medications acetaminophen-HYDROcodone ([place] 5 mg-325 mg oral tablet)1 Tab, Oral, [...] (04/30/16 2:41 AM) (04/29/16 2:36 AM) x10(3)/uL] [place] % 8.2 % (05/01/16 6.1 % (04/30/16 7.7 % (04/29/16 [3.0-9.0 %] 2:29 AM) 2:41 AM) 2:36 AM) [place] # 0.56 K/uL 0.53 K/uL 0.62 K/uL [...] PM) Urine 1.009 (04/26/16 Specific 2:17 PM) [place] [1.005-1.030 ] Urine pH 6.5 (04/26/16 2:17 [...] InformationAdmission Date: 04/26/2016Discharge Date: 05/01/2016[facility]. Compression fracture of L2, G0Skuwqq post kyphoplasty.2. Hyponatremia - Improved with IVF.3. [...] inhalation solution 3 mL, PRN, Nebulized Inhalation, A9Nappjxsxg 25 mg oral tablet 25 mg = 1 Tab, Oral, DailyNorco 5 mg-325 mg oral tablet 1 Tab, PRN, Oral, L0RHbkcl 5 mg-325 mg oral tablet 2 Tab, PRN, Oral, A2FWwrlelbeg Instructions:1. Follow up with his primary care [...] 25 mg = 1 Tab, Oral, Daily [place] 5 mg-325 mg oral tablet 1 Tab, PRN, Oral, Q6H [place] 5 mg-325 mg oral tablet 2 Tab, [...] instructions given: to patient.Discharge disposition: discharge to alf facility Inpatient rehabilitation facility. Discharge instructions given: to patient. Discharge disposition: discharge to alf facility Inpatient rehabilitation facility. Extracted from: Title: [...] Commentacetaminophen/HYDROcodone 325/5 mg tab 1 Tab, Oral, B2Mxvtqxsfnfengr/HYDROcodone 325/5 mg tab 2 Tab, Oral, J3Vasnetfnwm-mxuibwespjx inh 3 mL 3 mL, Nebulized Inhalation, D2QtaxPZTlas 0.1 mg tab 0.1 mg 1 Tab, Oral, H0Zeikjyvorhbk 5 mg/1 mL inj 2 mg 0.4 mL, IntraMuscular, J1OwjnsITBECNZ 20 mg/1 mL inj 20 mg 1 mL, IV Push, Y8BTZBUJqesmypsb 1 mg/1 mL inj 0.5 mg 0.5 mL, IV Push, I7RCKFjvlxzo 0.5 mg tab 1 mg 2 Tab, Oral, R12OdcLMHopwbzt 0.5 mg tab 2 mg 4 Tab, Oral, A87ElnKQCtxqbza 1 mg tab 3 mg 3 Tab, Oral, T31CaiZUNcelrwe 1 mg tab 4 mg 4 Tab, Oral, M08ZrpQNNmfyjmz 2 mg/mL inj 1 mg 0.5 mL, IV Push, Q56CttTSZnzdlyd 2 mg/mL inj 2 mg 1 mL, IV Push, D47DsnWBSvjmwrb 2 mg/mL inj 3 mg 1.5 mL, IV Push, Q63SalLVTfcutjc 2 mg/mL inj 4 mg 2 mL, IV Push, L22VxhNKArtpvhu 2 mg/mL inj 0.5 mg 0.25 mL, IV Push, E4Qqesgihbkhq tartrate 25 mg tab 25 mg 1 Tab, Oral, O1Psdesolhqemu 4 mg tab 4 mg 1 Tab, Oral, M4Cfgwgggvoery 4 mg/2 mL inj 4 mg 2 mL, IV Push, A5BOymnacx list:MedicalCompression fracture / SNOMED CT 8987487924 / ConfirmedS/P kyphoplasty / SNOMED CT 307528482 / ConfirmedHx of breast cancer / SNOMED CT 4066963851 / Confirmed,Active Problems (6)Chronic back pain Compression [...] list: Medical Compression fracture / SNOMED CT 3392724704 / Confirmed S/P kyphoplasty / SNOMED CT 672742389 / Confirmed Hx of breast cancer / SNOMED CT 5985896939 / Confirmed, Active Problems (6) Chronic back [...] range of motion, Normal strength.Integumentary: Warm, Dry, [place].Neurologic: Alert, Oriented, No focal deficits, Cranial Nerves II-XII are grossly intact.Psychiatric: Cooperative, Appropriate mood & affect. Integumentary: Warm, Dry, [place]. Neurologic: Alert, Oriented, No focal deficits, Cranial [...] Impression and Plan1. Compression fracture of L2, B1Rtqjfe post kyphoplasty.Continue pain management.Neurosurgery following.Physical therapy evalMay benefit from inpatient rehabilitation.Discussed with case aide.2. Hyponatremia - Improved with IVF.3. Dehydration - [...] Commentacetaminophen/HYDROcodone 325/5 mg tab 1 Tab, Oral, R0Yxsckhkuekwjrc/HYDROcodone 325/5 mg tab 2 Tab, Oral, O6Dnjlvrrqvv-ztiahmiawmo inh 3 mL 3 mL, Nebulized Inhalation, S2YwcmLQGamu 0.1 mg tab 0.1 mg 1 Tab, Oral, S4Zvlymbzujsuk 5 mg/1 mL inj 2 mg 0.4 mL, IntraMuscular, J5CmmeeHVVAREJ 20 mg/1 mL inj 20 mg 1 mL, IV Push, V2GNKGQHsxgsyyrr 1 mg/1 mL inj 0.5 mg 0.5 mL, IV Push, U9CYWKscfbpy 0.5 mg tab 1 mg 2 Tab, Oral, I36ZxkFNXavbnad 0.5 mg tab 2 mg 4 Tab, Oral, R50RhuNFZjymncg 1 mg tab 3 mg 3 Tab, Oral, K04ItgHPShtydze 1 mg tab 4 mg 4 Tab, Oral, W65WxyDQTpzlyon 2 mg/mL inj 1 mg 0.5 mL, IV Push, B00QcoECDcknblg 2 mg/mL inj 2 mg 1 mL, IV Push, K03WvdSAHaxuqpw 2 mg/mL inj 3 mg 1.5 mL, IV Push, S64OvdLKNcrsvwf 2 mg/mL inj 4 mg 2 mL, IV Push, H85WqjTBGgbduuu 2 mg/mL inj 0.5 mg 0.25 mL, IV Push, G7Mmsqukrrmng tartrate 25 mg tab 25 mg 1 Tab, Oral, M8Nxsmleakiofm 4 mg tab 4 mg 1 Tab, Oral, G4Ylnjpnlawgdu 4 mg/2 mL inj 4 mg 2 mL, IV Push, E0QOwvbtmr list:MedicalCompression fracture / SNOMED CT 4088862363 / ConfirmedS/P kyphoplasty / SNOMED CT 345880139 / ConfirmedHx of breast cancer / SNOMED CT 7485291902 / Confirmed,Active Problems (6)Chronic back pain Compression [...] list: Medical Compression fracture / SNOMED CT 3125034850 / Confirmed S/P kyphoplasty / SNOMED CT 760375232 / Confirmed Hx of breast cancer / SNOMED CT 7307812588 / Confirmed, Active Problems (6) Chronic back [...] range of motion, Normal strength.Integumentary: Warm, Dry, [place].Neurologic: Alert, Oriented, No focal deficits, Cranial Nerves II-XII are grossly intact.Psychiatric: Cooperative, Appropriate mood & affect. Integumentary: Warm, Dry, [place]. Neurologic: Alert, Oriented, No focal deficits, Cranial [...] Oral, Q6H, PRN: HypertensionLovenox: 40 mg, SubCutaneous, T39JXlmDimhxp Saline Flush: 10 mL, IV Push, 1-TimeZofran: [...] inh 3 mL 3 mL, Nebulized Inhalation, F9GqzgQPQsta 0.1 mg tab 0.1 mg 1 Tab, Oral, H4Wmknorlyqtgo 5 mg/1 mL inj 2 mg 0.4 mL, IntraMuscular, I4TrpffOZOCRZJ 20 mg/1 mL inj 20 mg 1 mL, IV Push, W8FYCAbrdjhn 0.5 mg tab 1 mg 2 Tab, Oral, B85SugBXQntaegd 0.5 mg tab 2 mg 4 Tab, Oral, P23PwvCLMpvkvze 1 mg tab 3 mg 3 Tab, Oral, A66IgfQQWydzrwv 1 mg tab 4 mg 4 Tab, Oral, U47SsgAULtgyfdi 2 mg/mL inj 1 mg 0.5 mL, IV Push, M24SqpZDKhcyhgb 2 mg/mL inj 2 mg 1 mL, IV Push, D93LlqXMDxgnrng 2 mg/mL inj 3 mg 1.5 mL, IV Push, B38AhnXCEitejrj 2 mg/mL inj 4 mg 2 mL, IV Push, K46UckEKDeewyzf 2 mg/mL inj 0.5 mg 0.25 mL, IV Push, A9Jetyypqzrav tartrate 25 mg tab 25 mg 1 Tab, Oral, S1Smtjzxljh 4 mg/1 mL cpjt inj 4 mg 1 mL, IV Push, M4Rojqiqiaqiex 4 mg tab 4 mg 1 Tab, Oral, W2Tjsogcrktupn 4 mg/2 mL inj 4 mg 2 mL, IV Push, R3TQotrfvu list:MedicalCompression fracture / SNOMED CT 1156266629 / ConfirmedS/P kyphoplasty / SNOMED CT 821823574 / ConfirmedHx of breast cancer / SNOMED CT 9798976702 / Confirmed,Active Problems (6)Chronic back pain Compression [...] list: Medical Compression fracture / SNOMED CT 6864629481 / Confirmed S/P kyphoplasty / SNOMED CT 210650486 / Confirmed Hx of breast cancer / SNOMED CT 8242358703 / Confirmed, Active Problems (6) Chronic back pain Compression fracture History of COPD Hx of breast cancer S/P kyphoplasty Smoker Physical ExaminationVS/MeasurementsVitals Signs (last 24 hrs) Last Charted Minimum MaximumTemp 98.5 ([facility] :)97.2 (APR 28 05:45)98.3 (APR 28 02:30)Mon HR 69 (APR 28:)61 (APR 28 05:30)69 (APR 28 09:30)Resp Rate 16 (APR 28:)14 (APR 28 02:30)16 (APR 28 09:30)SBP 130 (APR 28:33)120 (APR 28 09:30)H 150 (APR 28 05:30)DBP 64 (APR 28:33)L 43 (APR 28 09:30)H 93 (APR 28 02:30)MAP 75 ([facility] :)60 (APR 28 09:30)100 (APR 28 02:30)SpO2 [...] range of motion, Normal strength.Integumentary: Warm, Dry, [place].Neurologic: Alert, Oriented, No focal deficits, Cranial Nerves II-XII are grossly intact.Psychiatric: Cooperative, Appropriate mood & affect. Integumentary: Warm, Dry, [place]. Neurologic: Alert, Oriented, No focal deficits, Cranial [...] Patient to be on bed rest with [place] 7.5 q.4 h.p.r.n. with morphine 4 mg [...] Oral, Q6H, PRN: HypertensionLovenox: 40 mg, SubCutaneous, M81YUtcLkobnu Saline 1,000 mL: 75 mL/Hr, IntraVENousNormal Saline [...] mL inj 40 mg 0.4 mL, SubCutaneous, R90IQbficejz acid 1 mg tab 2 mg 2 [...] inh 3 mL 3 mL, Nebulized Inhalation, E0UjaaTRIntp 0.1 mg tab 0.1 mg 1 Tab, Oral, P9Szpeilrpjauh 5 mg/1 mL inj 2 mg 0.4 mL, IntraMuscular, Z7Tzgpyxwvhe 100 mg/20 mL inj 20 mg 4 mL, IV Push, M1CYMWleeqdg 0.5 mg tab 1 mg 2 Tab, Oral, A21QcdZSDtkdiew 0.5 mg tab 2 mg 4 Tab, Oral, T70OajXMLpwsrlk 1 mg tab 3 mg 3 Tab, Oral, O51JulQVWhblxxn 1 mg tab 4 mg 4 Tab, Oral, Q89LxfOQOwomjyf 2 mg/mL inj 1 mg 0.5 mL, IV Push, A17WkqDXTdsnbqw 2 mg/mL inj 2 mg 1 mL, IV Push, W33YsjYRGqxiwlo 2 mg/mL inj 3 mg 1.5 mL, IV Push, N62EbwZNGgdvyog 2 mg/mL inj 4 mg 2 mL, IV Push, H73Bxcaqhaytxrcx tartrate 25 mg tab 25 mg 1 Tab, Oral, S1Chdbnibgl 4 mg/1 mL cpjt inj 4 mg 1 mL, IV Push, U6Fbuitutuakox 4 mg tab 4 mg 1 Tab, Oral, K9Nauwyzochgiq 4 mg/2 mL inj 4 mg 2 mL, IV Push, G0IGwtxgat list:MedicalCompression fracture / SNOMED CT 4277078381 / ConfirmedS/P kyphoplasty / SNOMED CT 645283727 / ConfirmedHx of breast cancer / SNOMED CT 8312461658 / Confirmed,Active Problems (6)Chronic back pain Compression [...] list: Medical Compression fracture / SNOMED CT 8849006055 / Confirmed S/P kyphoplasty / SNOMED CT 814857594 / Confirmed Hx of breast cancer / SNOMED CT 0512778434 / Confirmed, Active Problems (6) Chronic back [...] range of motion, Normal strength.Integumentary: Warm, Dry, [place].Neurologic: Alert, Oriented, No focal deficits, Cranial Nerves II-XII are grossly intact.Psychiatric: Cooperative, Appropriate mood & affect. Integumentary: Warm, Dry, [place]. Neurologic: Alert, Oriented, No focal deficits, Cranial [...] Patient to be on bed rest with [place] 7.5 q.4 h.p.r.n. with morphine 4 mg [...] EducationBalloon Kyphoplasty Fall Prevention and Home Safety, Pdaa-tx-Xpzu Incision Care, Mnfg-qb-Oqhm Wound Infection, Tbus-yy-Ojly"
--- OUTSIDE RECORDS SUMMARY | 2017-03-31 12:36 | External Medical Summary Rpt ---
Author Author DEAN Meyers, DEAN Meyers Organization [employer] Address Unknown Phone Unavailable
--- OUTSIDE RECORDS SUMMARY | 2017-03-31 12:36 | External Medical Summary Rpt ---
Author Author [place] [place] Organization [facility] Address Unknown Phone Unavailable Care Team Providers Care Well Cleaner Name Role Phone DR RAYMOND PCP [phone] Encounter [facility] [id number] Date(s): 08/10/16 - 08/10/16 [facility] [address] [place] [address]- [phone] Discharge Diagnosis: Nausea Discharge Diagnosis: Acute lower [...] 1.45 K/uL [1.18-3.74 (08/10/16 4:42 PM) K/uL] [place] % 4.3 % [4.7-12.5 %] *LOW* (08/10/16 4:42 PM) [place] # 0.46 K/uL [0.24-0.82 (08/10/16 4:42 PM) [...] PM) Urine 1.005 Specific (08/10/16 4:57 PM) [place] [1.005-1.030 ] Urine pH 7.0 Dipstick (08/10/16 [...]
[2017-03-31 12:42] LABS: HEMOGLOBIN 14.2 g/dL (12.2-16.2); LYMPH % 10.5 % (10-50.0)
--- NOTE | 2017-03-31 13:26 | Emergency Room Report ---
History of Present Illness Time Seen by 1211 Presenting Problem in Triage Pt arrived:Ambulance Stretcher Presenting Problem:N/V/D Onset of symptoms date/time:03/30/17/ or onset unknown for:MEDICAL HX UNKNOWN Treatment Prior to Arrival: DB2 DBA Provided by: Sepsis Risk Assessment: Temp: 97.8 B/P: 142/81 MAP: 101 Pulse: 78 Resp: 18 Recent fever? N Clinical Suspician of Infection? N Mental Status: 1 - Regular (Normal Baseline) Sepsis Risk:Low Sepsis Risk Have you (or family members/close friends) recently traveled outside the [place]? N If Yes, where/when: Have you had exposure to infectious disease within the past month? TB? Other? Specify: Source patient, RN notes reviewed, RN/MD Exam Limitations no limitations Comment This is a 76-year-old feel patient presenting to the emergency room with intractable nausea, vomiting, diarrhea for the past 2 days, currently unable to hold down any solid food or liquids. Patient denies any recent travel or exposure to sick contacts. Patient denies any blood in the vomitus or feces, denies any fever. ALLERGIES Coded Allergies: No Known Allergies (03/31/17) History Medical History General Hypertension? Yes Hyperlipidemia? Yes More? Yes Additional hx: CONSTIPATION Immunization Hx Ped.Immunizations UTD Yes DT/Tetanus 5-10 Years Ago Surgical Hx Previous Surgery?Y KYPHOPLASTY X 2 Social History Smoking Hx Smoker: Never Smoker Tobacco: No Type N/A Are you/the child exposed to second-hand smoke: No Alcohol Alcohol: Yes Review of Systems All Other Systems Reviewed and Negative Gastrointestinal see HPI, abdominal pain, diarrhea, nausea, vomiting Physical Exam Vital Signs Vital Signs Date Time Temp Pulse Resp B/P Pulse O2 O2 Flow FiO2 Ox Delivery Rate 03/31 1638 82 18 142/70 98 03/31 1538 97.8 68 18 156/71 95 03/31 1335 68 18 156/71 95 03/31 1210 97.8 78 18 142/81 95 General Appearance normal appearance, WD/WN, mild distress Neck normal inspection, non-tender, supple, full range of motion Respiratory Status Yes: trachea midline, chest symmetrical, non tender chest. No: respiratory distress. Lung Sounds bilateral: normal breath sounds, lungs clear. Cardiovascular normal exam, regular rate/rhythm, no peripheral edema, no gallop, no JVD, no murmur, no rub, normal peripheral pulses Gastrointestinal normal bowel sounds, normal exam, non tender, soft, no organomegaly Extremities non-tender, normal range of motion, normal inspection Neurologic alert, dulite machine bluer II-XII nml as tested, normal exam, oriented x 3 Mental status normal mood/affect Skin intact, normal color, warm/dry Medical Decision Making LABS/Meds/Orders Pt receiving controlled substance in ED? No Comment 16:30 - case discussed with Natacha Gould, taking calls for Dr Hopper, wasn't patient presentation, findings, lack of response to treatment so far given. 16:45-patient's grandson arrived to the emergency room advised the patient is an alcoholic, drinking approximately 30 beers in 2 days, and not eating anything during that time. He has great concerns over the patient's safety with whom he has been living for the past 7 years, and he believes that it is time for her to be placed in a senior living. 16:45-care transferred to Dr. Hopper at this time. I will write temporary, bridge admission orders per hospital protocol. Upon patient's arrival to the floor the unit nurse will contact Dr. Cordero in order to obtain full inpatient admission orders. Results/Orders Laboratory Tests 03/31/17 1215: Sodium 132 L, Potassium 4.3, Chloride 97 L, Carbon Dioxide 27, BUN 16, Creatinine 1.0, Estimated Creat Clear 33 L, Estimated GFR (MDRD) 54 L, Glucose 96, Calcium 9.2, Total Bilirubin 0.2, AST 19, ALT 17, Alkaline Phosphatase 125 H, Total Protein 7.2, Albumin 3.9, Globulin 3.3 H, Albumin/Globulin Ratio 1.2, Amylase 61, Lipase 182, WBC 9.1, RBC 4.24, Hgb 14.2, Hct 41.3, MCV 97.3, RDW 13.6, Plt Count 282, MPV 7.0 L, Gran % 84.5 H, Gran # 7.7, Lymphocytes % 10.5, Monocytes % 4.3, Eosinophils % 0.4, Basophils % 0.3, Lymphocytes # 1.0, Monocytes # 0.4, Eosinophils # 0.0, Basophils # 0.0, PUBS MCHC 34.3, MCH 33.4 H , Alcohols 0 Current Medication Orders Sig/Kaye Start time Last Medication Dose Route Stop Time Status Admin Diphenoxylate HCl/ 5 MG ONCE ONE 03/31 1615 DC Atropine PO 03/31 1616 Loperamide HCl 4 MG ONCE ONE 03/31 1615 DC PO 03/31 1616 Ondansetron HCl 0 .STK-MED ONE 03/31 1334 DC .ROUTE Sodium Chloride 1,000 ML .Q1H1M 03/31 1330 DC 03/31 IV 03/31 1430 1335 Sodium Chloride 10 ML PRN PRN 03/31 1330 DCD IV 04/01 1322 Ondansetron HCl 4 MG ONCE ONE 03/31 1215 DC 03/31 IV 03/31 1216 1335 Orders Procedure Date/time Status Decision to admit 03/31 1647 Active ALCOHOL 03/31 1307 Complete DIARRHEA PANEL, PCR 03/31 1212 Active IV SALINE LOCK 03/31 1211 Active URINALYSIS/COMPLETE 03/31 1211 Active LIPASE 03/31 1211 Complete CBC WITH AUTO DIFF 03/31 1211 Complete CHEM 12 PROFILE 03/31 1211 Complete AMYLASE 03/31 1211 Complete Departure Departure Time of Disposition 1558 Disposition Still a Patient Clinical Impression Primary Impression: Viral gastroenteritis Secondary Impressions: Alcoholism, Dehydration Condition STABLE ED Critical Care Critical Care No at 1708
[2017-03-31] MEDS ORDERED: ZOFRAN ODT4 MG PO (16:02)
[2017-03-31 17:34] LABS: FREE THYROXIN INDEX 7.8 ug/dl (5.93-13.13)
--- OUTSIDE RECORDS SUMMARY | 2017-03-31 17:39 | External Medical Summary Rpt ---
Author Author DEAN [employer], [employer] Organization [employer] Address Unknown Phone Unavailable Results Ethanol [Mass/volume] in Serum or Plasma Observa Value Referen Units Interpr Notes Date tion ce etation Range Ethanol 0 - 99 mg/dL Normal ANY Mar 31 [Mass/vol ALCOHOL > 2017 ume] in OR = 80 12:15 PM Serum or MG/DL IS Plasma CONSIDERE D LEGALLYIN TOXICATED UNDER [place] [employer]. Amylase [Enzymatic activity/volume] in Serum or Plasma Observa Value Referen Units Interpr Notes Date tion ce etation Range Amylase 25 - 115 U/L Normal No Mar 31 [Enzymati informati 2017 c on in 12:15 PM activity/ source volume] data in Serum or Plasma Comprehensive metabolic 2000 panel in Serum or Plasma Observa Value Referen Units Interpr Notes Date tion ce etation Range Albumin/G 1.1 - 1.8 No Normal No Mar 31 lobulin informati informati 2016 [Mass on in on in 12:15 PM ratio] in source source Serum or data data Plasma Albumin 3.4 - 5.0 gm/dL Normal No Mar 31 [Mass/vol informati 2016 ume] in on in 12:15 PM Serum or source Plasma data Alkaline 46 - 116 U/L High No Mar 31 phosphata informati 2017 se on in 12:15 PM [Enzymati source c data activity/ volume] in Serum or Plasma Bilirubin 0.2 - 1.0 mg/dL Normal No Mar 31 .total informati 2017 [Mass/vol on in 12:15 PM ume] in source Serum or data Plasma Urea 7 - 18 mg/dL Normal No Mar 31 nitrogen informati 2017 [Mass/vol on in 12:15 PM ume] in source Serum or data Plasma Calcium 8.5 - mg/dL Normal No Mar 31 [Mass/vol 10.1 informati 2016 ume] in on in 12:15 PM Serum or source Plasma data Chloride 98 - 107 mmoL/L Low No Mar 31 [Moles/vo informati 2017 lume] in on in 12:15 PM Serum or source Plasma data Carbon 21.0 - mmoL/L Normal No Mar 31 dioxide, 32.0 informati 2016 total on in 12:15 PM [Moles/vo source lume] in data Serum or Plasma Creatinin 0.55 - mg/dL Normal No Mar 31 e 1.02 informati 2016 [Mass/vol on in 12:15 PM ume] in source Serum or data Plasma Creatinin 50 - 200 ML/MIN Low No Mar 31 e renal inform 2017 clearance on in 12:15 PM source predicted data by Cockcroft -Gault formula Estimated 59- ML/MIN Low REFERENCE Mar 31 RANGE: 2017 glomerula >60 12:15 PM r ML/MIN/1. filtratio 73 SQUARE n rate METERSIf (GF this patient is -A merican, then multiply theresult by 1.210. Globulin 1.3 - 3.2 gm/dL High No Mar 31 [Mass/vol informati 2016 ume] in on in 12:15 PM Serum source data Glucose 74 - 106 mg/dL Normal No Mar 31 [Mass/vol informati 2016 ume] in on in 12:15 PM Serum or source Plasma data Potassium 3.5 - 5.1 mmoL/L Normal No Mar 31 inform2016 [Moles/vo on in 12:15 PM lume] in source Serum or data Plasma Sodium 136 - 145 mmoL/L Low No Mar 16 [Moles/vo informati 2016 lume] in on in 12:15 PM Serum or source Plasma data Aspartate 15 - 37 U/L Normal No Mar 31 inform2016 aminotran on in 12:15 PM sferase source [Enzymati data c activity/ volume] in Serum or Plasma Alanine 12 - 78 U/L Normal No Mar 31 aminotran inform2016 sferase on in 12:15 PM [Enzymati source c data activity/ volume] in Serum or Plasma Protein 6.4 - 8.2 gm/dL Normal No Mar 16 [Mass/vol informati 2016 ume] in on in 12:15 PM Serum or source Plasma data Lipase [Enzymatic activity/volume] in Serum or Plasma Observa Value Referen Units Interpr Notes Date tion ce etation Range Lipase 73 - 393 U/L Normal No Mar 31 [Enzymati informati 2017 c on in 12:15 PM activity/ source volume] data in Serum or Plasma CBC W Auto Differential panel in Blood Observa Value Referen Units Interpr Notes Date tion ce etation Range Basophils 0 - 0.2 K/MM3 Normal No Mar 312016 [#/volume on in 12:15 PM ] in source Blood by data Automated count Basophils 0.1 - 2.0 % Normal No Mar 31 /100 inform2016 leukocyte on in 12:15 PM s in source Blood by data Automated count Eosinophi 0.0 - 0.4 K/mm3 Normal No Mar 31 ls 2016 [#/volume on in 12:15 PM ] in source Blood by data Automated count Eosinophi 0.1 - % Normal No Mar 31 ls/100 12.0 inform2016 leukocyte on in 12:15 PM s in source Blood by data Automated count Granulocy 1.8 - 7.8 K/mm3 Normal No Mar 31 [place] 2016 [#/volume on in 12:15 PM ] in source Blood by data Automated count Granulocy 37.0 - % High No Mar 31 [place]/100 80.0 2016 leukocyte on in 12:15 PM s in source Blood by data Automated count Hematocri 37.0 - % Normal No Mar 31 t [Volume 47.0 2016 on in 12:15 PM Fraction] source of Blood data Hemoglobi 12.2 - g/dL Normal No Mar 31 n 16.2 2016 [Mass/vol on in 12:15 PM ume] in source Blood data Lymphocyt 0.7 - 4.5 K/mm3 Normal No Mar 31 es 2016 [#/volume on in 12:15 PM ] in source Unspecifi data ed specimen by Automated count Lymphocyt 10 - 50.0 % Normal No Mar 31 es 2016 [#/volume on in 12:15 PM ] in source Unspecifi data ed specimen by Automated count Erythrocy 27 - 31.2 pg High No Mar 31 te mean 2016 corpuscul on in 12:15 PM ar source hemoglobi data n [Entitic mass] Erythrocy 31.8 - g/dl Normal No Mar 31 te mean 35.4 2016 corpuscul on in 12:15 PM ar source hemoglobi data n concentra tion [Mass/vol ume] by Automated count Erythrocy 82.2 - fl Normal No Mar 31 te mean 97.8 2016 corpuscul on in 12:15 PM ar volume source [Entitic data volume] by Automated count Monocytes 0.1 - 1.0 K/mm3 Normal No Mar 312016 [#/volume on in 12:15 PM ] in source Blood by data Automated count Monocytes 1.7 - 9.3 % Normal No Mar 31 /100 2016 leukocyte on in 12:15 PM s in source Blood by data Automated count Platelet 7.4 - fl Low No Mar 31 mean 10.4 2016 volume on in 12:15 PM [Entitic source volume] data in Blood by Automated count Platelets 142 - 424 K/mm3 Normal No Mar 312016 [#/volume on in 12:15 PM ] in source Blood data Erythrocy 4.2 - 5.4 M/mm3 Normal No Mar 31 [place] 2016 [#/volume on in 12:15 PM ] in source Amniotic data fluid Erythrocy 11.5 - % Normal No Mar 31 te 17.5 2016 distribut on in 12:15 PM ion width source [Entitic data volume] by Automated count Leukocyte 4.8 - K/MM3 Normal No Mar 31 s 10.8 2016 [#/volume on in 12:15 PM ] in source Blood data
--- OUTSIDE RECORDS SUMMARY | 2017-03-31 17:39 | External Medical Summary Rpt ---
Demographics Preferred Language Korean Marital Status Unknown Confucianism Affiliation Unknown Race Unknown Ethnic Group Unknown Author Author DEAN Address Unknown Phone Immunization No patient found.
--- OUTSIDE RECORDS SUMMARY | 2017-03-31 17:39 | External Medical Summary Rpt ---
Author Author DEAN Address Unknown Phone [email or web address] Purpose Continuity of Care Document - 03-31-2017 through 2016
--- OUTSIDE RECORDS SUMMARY | 2017-03-31 17:39 | External Medical Summary Rpt ---
Demographics Preferred Language Icelandic Marital Status Unknown Restorationism Affiliation Unknown Race Unknown Ethnic Group Unknown Author Author DEAN Address Unknown Phone Immunization No patient found.
--- OUTSIDE RECORDS SUMMARY | 2017-03-31 17:39 | External Medical Summary Rpt ---
Author Author DEAN Address Unknown Phone [email or web address] Purpose Continuity of Care Document - 03-31-2017 through 2016
--- OUTSIDE RECORDS SUMMARY | 2017-03-31 17:39 | External Medical Summary Rpt ---
[...] IS Plasma CONSIDERE D LEGALLYIN TOXICATED UNDER [place] [employer]. Amylase [Enzymatic activity/volume] in Serum or [...]
[2017-03-31 18:02] VITALS: BP 155/84
[2017-03-31] MEDS ORDERED: LOSARTAN POTASS50 MG PO (18:29)
[2017-03-31] MEDS ORDERED: DOCUSATE SODIU100 MG PO (18:32)
[2017-03-31 19:33] VITALS: BP 166/85
[2017-03-31 19:51] VITALS: BP 166/85
[2017-03-31 21:41] VITALS: BP 166/85
[2017-04-01 00:28] VITALS: BP 168/75
[2017-04-01 04:00] VITALS: BP 136/67
[2017-04-01 07:15] LABS: HEMOGLOBIN 13.3 g/dL (12.2-16.2); LYMPH # 1.1 K/mm3 (0.7-4.5)
--- NOTE | 2017-04-01 07:27 | PHARMACY CLINIC NOTE ---
Patient Demographics Patient Demographics Admission date: 03/31/17 Date: 04/01/17 Time: 726 Allergies Coded Allergies: No Known Allergies (03/31/17) HEIGHT- FT: 5 IN: 1.00 K.058 VTE General Information Labs: Laboratory Tests 04/01 03/31 0700 1215 Hematology Hgb (12.2 - 16.2 g/dL) 13.3 14.2 Hct (37.0 - 47.0 %) 38.8 41.3 Plt Count (142 - 424 K/mm3) 262 282 Disclaimer The following section includes nursing documentation that has been pulled in for pharmacy review. Patient's VTE score: 3 Patient's VTE Risk: LOW RISK Clinical trial participant? No VTE prophylaxis NQF [id number] VTE prophylaxis ordered? Yes Type of prophylaxis/treatment: VINNIE at 0727
[2017-04-01 08:00] VITALS: BP 158/75
[2017-04-01 09:09] VITALS: BP 158/75
--- NOTE | 2017-04-01 09:28 | Discharge Summary Standard ---
Demographics: Admit date: 03/31/17 Chief complaint: n/v/d PRIMARY DIAGNOSIS: DEHYDRATION Allergies: Coded Allergies: No Known Allergies (03/31/17) History of present illness: History of present illness: 76 yr old female presents to ed via ambulance with c/o intractable nausea, vomiting, diarrhea for the past 2 days, currently unable to hold down any solid food or liquids. Pt states she lives alone with neigb checking on her. Admitted for iv fluids and lab monitoring Past medical history: Immunization HX Ped.Immunizations UTD Yes DT/Tetanus 5-10 Years Ago Pneumonia Unknown TB Test in last year No General Angina: No CT: No Hypertension? Yes Hyperlipidemia? Yes CHF? No CVA? No Seizures? No Diabetes? 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 MASTECTOMY Current home meds: Reported Medications Losartan Potassium (Losartan 50MG) 50 MG PO DAILY #30 Docusate Sodium 100 MG PO DAILY Social Hx: Smoking HX Tobacco Yes Type Cigarettes Packs/day 1 1/2 - 2 PACKS Are you/the child exposed to second-hand smoke: No Alcohol Alcohol: Yes How much do you drink 3-5 Drinks Per Day For how long Longer Than 5 Years When was your last drink 24-48 Hours Ago Hx of Drug Use Drug Use? No Review of systems: Constitutional No: no symptoms reported. Respiratory No: no symptoms reported. Cardiovascular No no symptoms reported Gastrointestinal/Abdominal see HPI, diarrhea, nausea, poor appetite, poor fluid intake, vomiting Genitourinary No: no symptoms reported. Musculoskeletal No: no symptoms reported. Skin No: no symptoms reported. Neurological Yes: no symptoms reported. Exam: Lab data for last 24 hours: Laboratory Tests 04/01/17 0700: Sodium 135 L, Potassium 4.3, Chloride 104, Carbon Dioxide 27, BUN 8, Creatinine 0.8, Estimated Creat Clear 37 L, Estimated GFR (MDRD) 69, Glucose 103, Calcium 8.3 L, WBC 6.2, RBC 3.99 L, Hgb 13.3, Hct 38.8, MCV 97.3, RDW 13.6, Plt Count 262, MPV 7.3 L, Gran % 73.8, Gran # 4.6, Lymphocytes % 18.0, Monocytes % 5.0, Eosinophils % 2.5, Basophils % 0.7, Lymphocytes # 1.1, Monocytes # 0.3, Eosinophils # 0.2, Basophils # 0.1, PUBS MCHC 34.4, MCH 33.4 H 03/31/17 1215: TSH 3.07, Free T4 Index 7.8, Thyroxine (T4) 9.0, T3 Uptake 35 03/31/17 1215: Sodium 132 L, Potassium 4.3, Chloride 97 L, Carbon Dioxide 27, BUN 16, Creatinine 1.0, Estimated Creat Clear 33 L, Estimated GFR (MDRD) 54 L, Glucose 96, Calcium 9.2, Total Bilirubin 0.2, AST 19, ALT 17, Alkaline Phosphatase 125 H, Total Protein 7.2, Albumin 3.9, Globulin 3.3 H, Albumin/Globulin Ratio 1.2, Amylase 61, Lipase 182, WBC 9.1, RBC 4.24, Hgb 14.2, Hct 41.3, MCV 97.3, RDW 13.6, Plt Count 282, MPV 7.0 L, Gran % 84.5 H, Gran # 7.7, Lymphocytes % 10.5, Monocytes % 4.3, Eosinophils % 0.4, Basophils % 0.3, Lymphocytes # 1.0, Monocytes # 0.4, Eosinophils # 0.0, Basophils # 0.0, PUBS MCHC 34.3, MCH 33.4 H , Alcohols 0 Admission vital signs: 1ST Vital Signs Result Date Time Pulse Ox 95 03/31 1210 B/P 142/81 03/31 1210 Temp 97.8 03/31 1210 Pulse 78 03/31 1210 Resp 18 03/31 1210 O2 Delivery ROOM AIR 03/31 1802 Exam General appearance: normal appearance, alert, awake, no acute distress Eyes: normal exam ENT: normal exam Neck: normal inspection, full range of motion Cardiovascular: normal exam, no JVD Respiratory: normal exam, clear to auscultation, chest non-tender, good air movement, normal breath sounds ABD: normal exam, non-distended, normal bowel sounds, no rebound, soft, no tenderness Genitourinary: normal voiding & quantity Extremities: normal exam, moves all Musculoskeletal: normal exam Skin: normal exam, intact, warm Neuro: normal exam, alert, intact, oriented Hospital Course Hospital Course: Iv fluids, monitor labs, meds Question was discussed with ed dr by jackeline that she was unsafe at home and drank alot of beer. Pt denies drinking to excess, states every now and again her friend pirce obtains her beer. pt states she is safe at home and has not concerns. Will have pt/ot eval to evaluate Medications Medications: Discharge meds are as noted. Follow up Follow up in office in: 4 DAYS with: Layla GAITAN,Luis Granados Comment: rounded with layla at 0483
[2017-04-01 11:51] VITALS: BP 160/76
[2017-04-01 15:11] VITALS: BP 160/76
[2017-04-02 14:39] LABS: Folate (Folic Acid) 9.1 ng/mL (>3.0)
== END 2017-04-01 15:10 | disposition home or self-care (01) ==
LOC: ER 12:08 → 2ND 16:49 → ER 17:11 → 2ND 17:11
PROVIDERS: Emergency Medicine
DX: E86.0 Dehydration (principal); A08.4 Viral intestinal infection, unspecified; I10 Essential (primary) hypertension; Z72.0 Tobacco use; F10.20 Alcohol dependence, uncomplicated
CPT/HCPCS: G0378; J2405

== ENCOUNTER 2017-05-13 00:27 | Emergency (ER) | payer MEDICARE, BC ==
[~2017-05-13] VITALS: Ht 154.9 cm; Wt 49.9 kg
[~2017-05-13 00:27] MED LIST: DOCUSATE SODIU100 MG PO; LOSARTAN POTASS50 MG PO; ZOFRAN ODT4 MG PO
--- NOTE | 2017-05-13 00:41 | Emergency Room Report ---
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 N Clinical Suspician of Infection? Y Mental Status: 1 - Regular (Normal Baseline) Sepsis Risk:Low Sepsis Risk Have you (or family members/close friends) recently traveled outside the [place]? N If Yes, where/when: Have you had exposure to infectious disease within the past month? N TB? Other? Specify: Source patient, RN notes reviewed, EMS, old records Exam Limitations no limitations Comment weakness and multiple falls over the last few days with dec po intake - pt with no fever and no cough or vomiting or diarrhea and no chest pain Cardiac Chest Pain Chest pain indicative of cardiac No Timing/Duration this evening Severity moderate ALLERGIES Coded Allergies: No Known Drug Allergies (NKDA) (05/13/17) Home Medications Reported Medications Losartan Potassium (Losartan 50MG) 50 MG PO DAILY #30 Docusate Sodium 100 MG PO DAILY ASPIRIN (Aspirin EC) 325 MG PO DAILY History Medical History General Angina: No [place]: No Hypertension? Yes Hyperlipidemia? Yes CHF? No CVA? No Seizures? No Diabetes? 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 MASTECTOMY Social History Smoking Hx Smoker: Current Every Day Smoker Tobacco: Yes Type Cigarettes Packs/day 1 1/2 - 2 Packs Alcohol Alcohol: Yes Drugs none Review of Systems All Other Systems Reviewed and Negative Constitutional see HPI, denies fever, weakness Eyes denies drainage ENT denies: ear pain, epistaxis, throat pain. Respiratory denies cough, denies shortness of breath, denies wheezing Cardiovascular denies chest pain, denies edema, denies palpitations, denies syncope Gastrointestinal denies abdominal pain, denies diarrhea, denies vomiting Genitourinary denies: dysuria, frequency, hesitancy, hematuria. Musculoskeletal see HPI, denies back pain, denies joint pain, denies joint swelling, denies neck pain, other Skin denies rash Psychiatric/Neurological denies headache, denies seizure Physical Exam Vital Signs Vital Signs Date Time Temp Pulse Resp B/P Pulse O2 O2 Flow FiO2 Ox Delivery Rate 05/13 0800 97.7 78 16 95 2 05/13 0423 74 16 167/85 96 2 05/13 0157 100.1 85 23 173/86 96 2 05/13 0029 100.1 85 23 171/97 96 2 - WBC >12,000 or <4,000 or 10% bands? 2 or more SIRS Criteria Met? B/P:173/86 MAP:121 Creatinine >2.0? UA output<0.5ml/kg/hr for 2 hrs? Platelet count >100,000? Lactate >2.0mmol/1? INR >1.2 or PTT > than 60 sec? Evidence of Organ Dysfunction? Provider documented clinical suspician of infection? Y Sepsis Criteria Count: 1 Sepsis Risk: Low Sepsis Risk General Appearance no apparent distress Eye Exam - bilateral eye PERRL, bilateral eye EOMI Ear, Nose, Throat normal ENT inspection Neck supple Respiratory Status No: respiratory distress. Lung Sounds bilateral: lungs clear. 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 No Results/Orders Laboratory Tests 05/13/17 0350: Creatine Kinase 314 H, CK-MB (CK-2) Rel Index 2.9, CK and CKMB Interp 9.2 *H, Troponin I 0.02 05/13/17 0051: ABG pH 7.45, ABG pCO2 (Temp Corrct 32.0 L, ABG pO2 (Temp Correct 64.0 L, ABG HCO3 22.0, ABG Total CO2 23.0, ABG O2 Sat (Calculated) 93, ABG Base Excess -1.5, Chucho Test NON APPLICABLE, Blood Gas Comments LEFT BRACHIAL 05/13/17 0030: Lactic Acid 1.2 05/13/17 0030: Sodium 130 L, Potassium 3.5, Chloride 98, Carbon Dioxide 24, BUN 16, Creatinine 0.6, Estimated Creat Clear 61, Estimated GFR (MDRD) 97, Glucose 126 H, Calcium 9.0, Total Bilirubin 0.6, AST 25, ALT 20, Alkaline Phosphatase 122 H, Creatine Kinase 365 H, CK-MB (CK-2) Rel Index 3.3, CK and CKMB Interp 12.0 *H, Troponin I 0.03, Total Protein 6.7, Albumin 3.4, Globulin 3.3 H, Albumin/Globulin Ratio 1.0 L, WBC 9.1, RBC 4.59, Hgb 15.0, Hct 44.2, MCV 96.2, RDW 13.8, Plt Count 317 , Gran % 82.8 H, Gran # 7.5, Lymphocytes % 13.1, Monocytes % 4.1, Lymphocytes # 1.2, Monocytes # 0.4, PUBS MCHC 33.9, ESR 34 H, MCH 32.7 H, Alcohols 0, Urine Color YELLOW, Urine Appearance CLEAR, Urine pH 6.0, Ur Specific [place] 1.010, Urine Protein NEGATIVE, Urine Ketones NEGATIVE, Urine Blood NEGATIVE, Urine Nitrate NEGATIVE, Urine Bilirubin NEGATIVE, Urine Urobilinogen 0.2, Ur Leukocyte Esterase NEGATIVE, Urine RBC OCC, Urine Bacteria TRACE, Urine Glucose NEGATIVE Current Medication Orders Sig/Kaye Start time Last Medication Dose Route Stop Time Status Admin Levofloxacin/Dextrose 100 ML .STK-MED ONE 05/13 0821 DC IV Levofloxacin/Dextrose 100 ML ONCE ONE 05/13 0800 r 05/13 IV 05/13 0859 0824 Sodium Chloride 1,000 ML .[id number] 05/13 0200 AC 05/13 IV 05/13 1347 0157 Sodium Chloride 10 ML PRN PRN 05/13 0200 AC IV 05/14 0147 Sodium Chloride 1,000 ML .STK-MED ONE 05/13 0147 DC IV Sodium Chloride 10 ML PRN PRN 05/13 0045 AC IV 05/14 0032 Orders Procedure Date/time Status DIET-NOTHING BY MOUTH 05/13 B Active OP COURTSEY MEAL 05/13 0819 Active CARDIAC ENZYMES 05/13 0429 Complete ELECTROCARDIOGRAM REQUEST 05/13 33 Active ARTERIAL BLOOD GAS REQUEST 05/[address] SCAN REQ 05/13 33 Complete IV SALINE LOCK 05/13 33 Active CULTURE, BLOOD 05/13 33 Active URINALYSIS/COMPLETE 05/13 33 Complete LACTIC ACID 05/13 33 Complete SED RATE 05/13 33 Complete COMPLETE METABOLIC PANEL 05/13 33 Complete CBC WITH AUTO DIFF 05/13 33 Complete CARDIAC ENZYMES 05/13 33 Complete ALCOHOL 05/13 33 Complete 12 LEAD EKG-BESSON (INITIAL) 05/13 001 Active CM/EKG 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 ST/Twave chgs XRAY/CT/US XRAY/CT/US 1 XRAY chest, pelvis XR interpretation by reviewed by me Xray Results no fracture seen, abnormal, no infiltrates XRAY/CT/US [address] interpretation by discussed w/radiologist Time results known: 0218 CT Results normal/NAD Departure Departure Time of Disposition 0845 Disposition DC/XFER to an SNF Clinical Impression Primary Impression: Weakness Secondary Impressions: Fall Qualifiers: Encounter type: initial encounter Qualified Code: W19.XXXA - Unspecified fall, initial encounter Gait difficulty Condition STABLE Patient Instructions DI for Muscle Weakness Additional Instructions will discuss with mental health social worker ED [place] [address]48
--- NOTE | 2017-05-13 00:41 | Emergency Room Report ---
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 N Clinical Suspician of Infection? Y Mental Status: 1 - Regular (Normal Baseline) Sepsis Risk:Low Sepsis Risk Have you (or family members/close friends) recently traveled outside the [place]? N If Yes, where/when: Have you had exposure to infectious disease within the past month? N TB? Other? Specify: Source patient, RN notes reviewed, EMS, old records Exam Limitations no limitations Comment weakness and multiple falls over the last few days with dec po intake - pt with no fever and no cough or vomiting or diarrhea and no chest pain Cardiac Chest Pain Chest pain indicative of cardiac No Timing/Duration this evening Severity moderate ALLERGIES Coded Allergies: No Known Drug Allergies (NKDA) (05/13/17) Home Medications Reported Medications Losartan Potassium (Losartan 50MG) 50 MG PO DAILY #30 Docusate Sodium 100 MG PO DAILY ASPIRIN (Aspirin EC) 325 MG PO DAILY History Medical History General Angina: No AK: No Hypertension? Yes Hyperlipidemia? Yes CHF? No CVA? No Seizures? No Diabetes? 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 MASTECTOMY Social History Smoking Hx Smoker: Current Every Day Smoker Tobacco: Yes Type Cigarettes Packs/day 1 1/2 - 2 Packs Alcohol Alcohol: Yes Drugs none Review of Systems All Other Systems Reviewed and Negative Constitutional see HPI, denies fever, weakness Eyes denies drainage ENT denies: ear pain, epistaxis, throat pain. Respiratory denies cough, denies shortness of breath, denies wheezing Cardiovascular denies chest pain, denies edema, denies palpitations, denies syncope Gastrointestinal denies abdominal pain, denies diarrhea, denies vomiting Genitourinary denies: dysuria, frequency, hesitancy, hematuria. Musculoskeletal see HPI, denies back pain, denies joint pain, denies joint swelling, denies neck pain, other Skin denies rash Psychiatric/Neurological denies headache, denies seizure Physical Exam Vital Signs Vital Signs Date Time Temp Pulse Resp B/P Pulse O2 O2 Flow FiO2 Ox Delivery Rate 05/13 0800 97.7 78 16 95 2 05/13 0423 74 16 167/85 96 2 05/13 0157 100.1 85 23 173/86 96 2 05/13 0029 100.1 85 23 171/97 96 2 - WBC >12,000 or <4,000 or 10% bands? 2 or more SIRS Criteria Met? B/P:173/86 MAP:121 Creatinine >2.0? UA output<0.5ml/kg/hr for 2 hrs? Platelet count >100,000? Lactate >2.0mmol/1? INR >1.2 or PTT > than 60 sec? Evidence of Organ Dysfunction? Provider documented clinical suspician of infection? Y Sepsis Criteria Count: 1 Sepsis Risk: Low Sepsis Risk General Appearance no apparent distress Eye Exam - bilateral eye PERRL, bilateral eye EOMI Ear, Nose, Throat normal ENT inspection Neck supple Respiratory Status No: respiratory distress. Lung Sounds bilateral: lungs clear. Cardiovascular regular rate/rhythm, systolic murmur Peripheral Pulses Pulses normal Yes Gastrointestinal soft Extremities normal inspection Strength 4 Upper Ext (L), 4 Upper Ext (R), 4 Lower Ext (L), 4 Lower Ext (R) Neurologic alert, cheesemaker II-XII nml as tested, no motor/sensory deficits Reflexes Reflexes normal No Mental status normal mood/affect Skin intact Medical Decision Making LABS/Meds/Orders Pt receiving controlled substance in ED? No Results/Orders Laboratory Tests 05/13/17 0350: Creatine Kinase 314 H, CK-MB (CK-2) Rel Index 2.9, CK and CKMB Interp 9.2 *H, Troponin I 0.02 05/13/17 0051: ABG pH 7.45, ABG pCO2 (Temp Corrct 32.0 L, ABG pO2 (Temp Correct 64.0 L, ABG HCO3 22.0, ABG Total CO2 23.0, ABG O2 Sat (Calculated) 93, ABG Base Excess -1.5, Chucho Test NON APPLICABLE, Blood Gas Comments LEFT BRACHIAL 05/13/17 0030: Lactic Acid 1.2 05/13/17 0030: Sodium 130 L, Potassium 3.5, Chloride 98, Carbon Dioxide 24, BUN 16, Creatinine 0.6, Estimated Creat Clear 61, Estimated GFR (MDRD) 97, Glucose 126 H, Calcium 9.0, Total Bilirubin 0.6, AST 25, ALT 20, Alkaline Phosphatase 122 H, Creatine Kinase 365 H, CK-MB (CK-2) Rel Index 3.3, CK and CKMB Interp 12.0 *H, Troponin I 0.03, Total Protein 6.7, Albumin 3.4, Globulin 3.3 H, Albumin/Globulin Ratio 1.0 L, WBC 9.1, RBC 4.59, Hgb 15.0, Hct 44.2, MCV 96.2, RDW 13.8, Plt Count 317 , Gran % 82.8 H, Gran # 7.5, Lymphocytes % 13.1, Monocytes % 4.1, Lymphocytes # 1.2, Monocytes # 0.4, PUBS MCHC 33.9, ESR 34 H, MCH 32.7 H, Alcohols 0, Urine Color YELLOW, Urine Appearance CLEAR, Urine pH 6.0, Ur Specific [place] 1.010, Urine Protein NEGATIVE, Urine Ketones NEGATIVE, Urine Blood NEGATIVE, Urine Nitrate NEGATIVE, Urine Bilirubin NEGATIVE, Urine Urobilinogen 0.2, Ur Leukocyte Esterase NEGATIVE, Urine RBC OCC, Urine Bacteria TRACE, Urine Glucose NEGATIVE Current Medication Orders Sig/Kaye Start time Last Medication Dose Route Stop Time Status Admin Levofloxacin/Dextrose 100 ML .STK-MED ONE 05/13 0821 DC IV Levofloxacin/Dextrose 100 ML ONCE ONE 05/13 0800 r 05/13 IV 05/13 0859 0824 Sodium Chloride 1,000 ML .[id number] 05/13 0200 AC 05/13 IV 05/13 1347 0157 Sodium Chloride 10 ML PRN PRN 05/13 0200 AC IV 05/14 0147 Sodium Chloride 1,000 ML .STK-MED ONE 05/13 0147 DC IV Sodium Chloride 10 ML PRN PRN 05/13 0045 AC IV 05/14 0032 Orders Procedure Date/time Status DIET-NOTHING BY MOUTH 05/13 B Active OP COURTSEY MEAL 05/13 0819 Active CARDIAC ENZYMES 05/13 0429 Complete ELECTROCARDIOGRAM REQUEST 05/13 33 Active ARTERIAL BLOOD GAS REQUEST 05/[address] SCAN REQ 05/13 33 Complete IV SALINE LOCK 05/13 33 Active CULTURE, BLOOD 05/13 33 Active URINALYSIS/COMPLETE 05/13 33 Complete LACTIC ACID 05/13 33 Complete SED RATE 05/13 33 Complete COMPLETE METABOLIC PANEL 05/13 33 Complete CBC WITH AUTO DIFF 05/13 33 Complete CARDIAC ENZYMES 05/13 33 Complete ALCOHOL 05/13 33 Complete 12 LEAD EKG-BESSON (INITIAL) 05/13 001 Active 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 ST/Twave chgs XRAY/CT/US XRAY/CT/US 1 XRAY chest, pelvis XR interpretation by reviewed by me Xray Results no fracture seen, abnormal, no infiltrates XRAY/CT/US [address] interpretation by discussed w/radiologist Time results known: 0218 CT Results normal/NAD Departure Departure Time of Disposition 0845 Disposition DC/XFER to an SNF Clinical Impression Primary Impression: Weakness Secondary Impressions: Fall Qualifiers: Encounter type: initial encounter Qualified Code: W19.XXXA - Unspecified fall, initial encounter Gait difficulty Condition STABLE Patient Instructions DI for Muscle Weakness Additional Instructions will discuss with manager social ED Critical Care Critical Care No at 0848
[2017-05-13] MEDS ORDERED: ASPIRIN EC325 MG PO (00:43)
[2017-05-13 00:55] LABS: ALLEN'S TEST NON APPLICABLE; ARTERIAL ABE -1.5 MMOL/L (-2.4-+2.3); OXYGEN RA
[2017-05-13 00:56] LABS: LYMPH # 1.2 K/mm3 (0.7-4.5); LYMPH % 13.1 % (10-50.0)
[2017-05-13 01:06] LABS: URINE BILIRUBIN - DIPSTICK NEGATIVE (NEG); URINE BLOOD NEGATIVE (NEG)
--- NOTE | 2017-05-13 05:22 | RADIOLOGY REPORT PS360 ---
CHEST-AP VIEW ONLY HISTORY: Shortness of breath sob ORDERING PHYSICIAN: Fede Hopper MD PATIENT AGE: 76 years COMPARISON: None available FINDINGS: There is moderate patient rotation to the right. There is normal heart size. Tortuosity/ectasia noted of the descending thoracic aorta. Patchy density right lung base. Postsurgical changes right axilla with surgical clips. Probable old fracture left humeral neck. Prior vertebral plasty lower thoracic and upper lumbar spine. IMPRESSION: 1. Right basilar airspace disease consistent atelectasis or infiltrate or contusion 2. Rotated exam with tortuosity/ectasia of the descending aorta
--- NOTE | 2017-05-13 05:24 | RADIOLOGY REPORT PS360 ---
PELVIS AP ONLY HISTORY: Fall with injury and pain sob ORDERING PHYSICIAN: Fede Hopper MD PATIENT AGE: 76 years COMPARISON: None FINDINGS: No fracture or dislocation is evident. No significant degenerative change. No lytic or blastic change. The SI joints have an unremarkable appearance. Prominent coarse calcifications in the central aspect of the pelvis consistent with fibroid involvement of the uterus. Right inguinal calcifications also noted. IMPRESSION: 1. No acute fracture. 2. Uterine fibroids
--- NOTE | 2017-05-13 05:26 | RADIOLOGY REPORT PS360 ---
CT HEAD W/O CONTRAST HISTORY: Headache, pain, contusion, abrasion from injury FALL ORDERING PHYSICIAN: Fede Hopper MD PATIENT AGE: 76 years COMPARISON: 04/26/2017 TECHNIQUE: Axial images obtained without contrast. Brain and bone windows reviewed. FINDINGS: No midline shift, mass effect, intracranial hemorrhage, hydrocephalus, or extra-axial fluid collection is evident. Atrophy with periventricular ischemic gliotic changes noted The calvarium has an unremarkable appearance. No mastoid effusion. The visualized paranasal sinuses are unremarkable. IMPRESSION: 1. No acute finding. 2. Involutional changes of age
[2017-05-13 11:03] VITALS: BP 121/83
== END 2017-05-13 11:05 | disposition left against medical advice (07) ==
LOC: ER 00:27
PROVIDERS: Emergency Medicine
DX: M62.81 Muscle weakness (generalized) (principal); Z91.81 History of falling; W18.39XA Other fall on same level, initial encounter; Y92.019 Unspecified place in single-family (private) house as the place of occurrence of the external cause; Z91.040 Latex allergy status; I10 Essential (primary) hypertension; F17.210 Nicotine dependence, cigarettes, uncomplicated